=== PATIENT | female | born 1965 | race Caucasian/White ===

== ENCOUNTER 2020-06-15 14:18 | Emergency (ER) | payer SELFPAY ==
[2020-06-15] VITALS (13 sets, daily range): BP systolic 117–230; BP diastolic 56–109; PULSE 58–75; RESP 14–21; TEMP 36.3–36.6; O2SAT 95–98; BMI 46.6
--- NOTE | 2020-06-15 14:31 | DI.RAD.S_ITS ---
PROCEDURE: XR CHEST 1V INDICATIONS: chest pain TECHNIQUE: One view of the chest was acquired. COMPARISON: None. FINDINGS: Surgical changes and devices: None. Lungs and pleura: Lungs are clear. No pleural effusions or pneumothorax. Mediastinum: Mediastinal contours appear normal. Heart size is normal. Bones and chest wall: No suspicious bony lesions. Overlying soft tissues appear unremarkable. IMPRESSION: No acute cardiopulmonary pathology. Dictated by: Wilder Herzog M.D. on 06/15/2020 at 15:07 Approved by: Wilder Herzog M.D. on 06/15/2020 at 15:08
[2020-06-15 15:05] LABS: Add Manual Diff / Slide Review NO; Basophils Absolute Auto 0 /uL (0-100); Basophils Percent Auto 0.6 % (0-2); Eosinophils Absolute Auto 0 /uL (0-450); Eosinophils Percent Auto 1.4 % (2-4); Hematocrit 40.9 % (36-46); Hemoglobin 13.7 g/dL (12.0-16.0); Lymphocytes Absolute Auto 1200 /uL (1100-4500); Lymphocytes Percent Auto 35.5 % (25-40); Mean Corpuscular HGB Conc 33.5 % (30-36); Mean Corpuscular Hemoglobin 30.1 PG (26-34); Monocytes Absolute Auto 200 /uL (0-900); Monocytes Percent Auto 5.3 % (3-14); Neutrophils Absolute Auto 2000 /uL (1500-7000); Neutrophils Percent Auto 57.2 % (50-75); Platelet Count 198 X10^3/uL (150-400); Red Blood Cell Count 4.55 X10^6/uL (4.0-5.2); Red Cell Distribution Width 12.9 % (11.6-14.8); White Blood Cell Count 3.5 X10^3/uL (4.5-11.0)
[2020-06-15 15:14] LABS: Prothrombin Time 11.4 SECONDS (10.1-12.7)
[2020-06-15 15:16] LABS: PTT Partial Thromboplastin Tim 33 SECONDS (26.4-36.2)
[2020-06-15 15:20] LABS: Alanine Aminotransferase 21 IU/L (<35); Albumin Globulin Ratio 1.3 (1.0-2.8); Alkaline Phosphatase 106 U/L (38-126); Aspartate Aminotransferase 23 IU/L (14-36); BUN Creatinine Ratio 38.6 (6-22); Bilirubin Total 0.5 mg/dL (0.2-1.3); Blood Urea Nitrogen 17 mg/dL (7-17); Calcium 9.1 mg/dL (8.4-10.2); Carbon Dioxide 32 mmol/L (22-32); Chloride 101 mmol/L (98-107); Creatine Kinase 83 U/L (30-135); Estimated Glomerular Filt Rate > 60.0 mL/min (>60); Globulin 3.2 g/dL (1.7-4.1); Glucose 302 mg/dL (70-100); HEMOLYSIS < 15 (0-50); Lipase 236 U/L (23-300); Potassium 4.2 mmol/L (3.4-5.1); Sodium 135 mmol/L (137-145); Total Protein 7.2 g/dL (6.3-8.2)
[2020-06-15 15:31] LABS: Troponin I < 0.012 ng/mL (0.01-0.034)
--- NOTE | 2020-06-15 16:28 | ED.EXTPRO ---
HPI - Extremity Problem <ENRIQUE Ross - Last Filed: 06/22/20 20:31> General Chief complaint: Extremity Problem,Nontraumatic Stated complaint: left shoulder severe inter. pain x3days Time Seen by Provider: 06/15/20 15:37 Source: patient Mode of arrival: Ambulatory Limitations: no limitations History of Present Illness HPI Narrative: This is a 55 year female, nonsmoker, who presents to ED with chief complain of nontraumatic left posterior shoulder pain for 3 days after he was moving out heavy objects in storage. Patient reports today she felt radiating pain down to elbow. She denies tingling, numbness, weakness to affected arm. Patient denies chest pain, dyspnea, abdominal pain, mid back pain, nausea, vomiting, or diaphoresis. Patient reports he had helps with pain and movements of left arm and back aggravates pain. Patient denies rashes on the back, fever or chills. Patient describes as sharp and in severe intensity. Patient is not on blood thinner. Patient reports her blood pressure has been normal reading up until today. She works across [employer], [place] and was working before coming into ED. patient has been taking [id number] Tylenol and ibuprofen every 4-5 hours for last 3 days without much improvement. Related Data Home Medications Medication Instructions Recorded Confirmed levothyroxine [Synthroid] #0 11/09/16 Previous Rx's Medication Instructions Recorded sulfamethoxazole-trimethoprim 1 tab PO BID #20 tab 11/10/16 cyclobenzaprine 10 mg PO BEDTIME PRN #7 tab 06/15/20 hydrocodone-acetaminophen [[place]] 1 tab PO BID PRN #7 tab 06/15/20 lidocaine 1 patch TOPICAL DAILY #30 ea 06/15/20 Allergies Allergy/AdvReac Type Severity Reaction Status Date / Time No Known Drug Allergies Allergy Verified 06/15/20 14:27 Review of Systems <ENRIQUE Ross - Last Filed: 06/22/20 20:31> Review of Systems Narrative: General: Denies fever, chills, fatigue, malaise, sweats. HEENT: Denies sinus pain, ear pain, sore throat, difficulty swallowing, dizziness. Respiratory: Denies dyspnea, cough, wheezing, hemoptysis, sputum. Cardiovascular: Denies chest pain, palpitations, orthopnea, edema. Gastrointestinal: Denies nausea, vomiting, abdominal pain, diarrhea, constipation, melena. : Denies dysuria, frequency, incontinence, hematuria, urinary retention. Musculoskeletal: See HPI Skin: Denies rash, skin lesions, or other. Neurologic: Denies weakness, headache, numbness, change in speech, confusion, seizures, incoordination. Psychiatric: No concerning psychosocial issues. 12-point review of systems is negative except for those stated above. Patient History <ENRIQUE Ross - Last Filed: 06/22/20 20:31> Social History Smoking Status: Never smoker Smoking Status: Never smoker alcohol intake frequency: holidays/special occasions only Substance Use Type: marijuana Exam <ENRIQUE Ross - Last Filed: 06/22/20 20:31> Narrative Exam Narrative: GEN: Alert, oriented x 3, obese, and in moderate distress from pain. Head: Normal cephalic, atraumatic. No scalp or temporal tenderness, palpable mass or rash. EYES: Pupils are equal, round, and reactive to light and accommodation. Extraocular muscles are intact bilaterally. There is no subconjunctival hemorrhage, exudate and sclera non-icteric. ENT: Hearing grossly intact. Nose without bleeding, purulent discharge or deviation. Mucous membrane moist, no mucosal lesion. Throat without erythema, tonsillar hypertrophy or exudate. Uvula in midline, airway patent. Neck: Trachea in midline. No JVD, non-tender without lymphadenopathy. No masses or thyroid megaly. Supple, non-tender and no meningeal signs. CARDIAC: Normal regular rate and rhythm without murmurs, gallops, or rubs. No chest wall tenderness. No peripheral edema, cyanosis or pallor. Capillary refill is less than 2 seconds. RESPIRATORY: Lungs are clear to auscultate bilaterally. No cough, wheezes, rales, or rhonchi. No stridor, respiratory distress, increase work of breathing, or accessary muscle used. ABD: Abdomen soft, nontender and non-distended. No guarding or rebound tenderness to palpate. Bowel sounds are normal in all 4 quadrants. There is no palpable masses or organomegaly. SKIN: Warm, dry, normal color for patient. No erythema, lesions or rash over visible areas. BACK: Left side upper thoracic pain with palpation in subscapula region without rash, warmth, or erythema. No spinous tenderness. No deformity or mass. NEUROLOGICAL: Alert and oriented to place, time and person. Sensation and motor function intact bilaterally. No facial droops, dysphasia. PSYCHIATRIC: Good judgement and reason, without hallucinations, abnormal affect or abnormal behaviors during the examination. Patient is not suicidal. Initial Vital Signs Initial Vital Signs: Vital Signs Temperature 97.3 F L 06/15/20 14:27 Pulse Rate 75 06/15/20 14:27 Respiratory Rate 18 06/15/20 14:27 Blood Pressure 230/109 H 06/15/20 14:27 Pulse Oximetry 98 06/15/20 14:27 <Nader Cox MD - Last Filed: 07/31/20 20:17> Initial Vital Signs Initial Vital Signs: Vital Signs Temperature 97.3 F L 06/15/20 14:27 Pulse Rate 75 06/15/20 14:27 Respiratory Rate 18 06/15/20 14:27 Blood Pressure 230/109 H 06/15/20 14:27 Pulse Oximetry 98 06/15/20 14:27 Scores <ENRIQUE Ross - Last Filed: 06/22/20 20:31> GCS [place] coma scale eye opening: Spontaneous [place] coma scale verbal response: Orientated [place] coma scale motor response: Obey commands [place] coma scale total score: 15 HEART Score Heart Score history: Slightly Suspicious Heart Score EKG: Non-Specific repolarization disturbance Heart Score Age: > or = 65 years old Heart Score risk factors: No known risk factors Heart Score troponin: < or = to normal limit Heart Score Total: 3 Course <ENRIQUE Ross - Last Filed: 06/22/20 20:31> Orders Ordered: Discontinued Medications Hydromorphone HCl (Hydromorphone 1 Mg Inj) 1 mg IM NOW ONE Stop: 06/15/20 16:29 Last Admin: 06/15/20 16:36 Dose: 1 mg Documented by: MALACHI Ketorolac Tromethamine (Ketorolac 60 Mg/2 Ml Vial) 30 mg IM NOW ONE Stop: 06/15/20 16:29 Last Admin: 06/15/20 16:36 Dose: 30 mg Documented by: MALACHI Lidocaine (Lidocaine Patch 1 Each Adh..Patch) 1 each TOP NOW ONE Stop: 06/15/20 16:29 Last Admin: 06/15/20 16:37 Dose: 1 each Documented by: MALACHI Ondansetron HCl (Ondansetron 4 Mg Odt) 4 mg SL NOW ONE Stop: 06/15/20 17:38 Last Admin: 06/15/20 17:41 Dose: 4 mg Documented by: MALACHI Reevaluation(s) Reevaluation #1: Patient reports pain improved. Discussed lab findings with negative cardiac enzymes, chest x-rays, shoulder x-rays. Patient felt nauseated likely due to Dilaudid IM injection and ordered Zofran 4 mg ODT. Time: 17:40 Reevaluation #2: Patient reports much improved nausea and pain at this time and is ready to go home. Time: 19:09 Vital Signs Vital signs: Vital Signs - 8 hr 06/15/20 14:27 06/15/20 14:52 06/15/20 14:54 Temperature 97.3 F L Pulse Rate 75 Respiratory Rate 18 Blood Pressure 230/109 H 178/75 H 194/84 H Pulse Oximetry 98 06/15/20 14:56 06/15/20 15:00 06/15/20 15:30 Temperature Pulse Rate 63 64 64 Respiratory Rate 21 18 Blood Pressure Pulse Oximetry 98 98 95 06/15/20 16:00 06/15/20 16:30 06/15/20 17:17 Temperature Pulse Rate 63 64 60 Respiratory Rate 14 14 Blood Pressure Pulse Oximetry 96 95 97 06/15/20 17:19 06/15/20 18:33 06/15/20 18:34 Temperature Pulse Rate 58 L 62 Respiratory Rate 16 Blood Pressure 134/60 183/78 H Pulse Oximetry 95 97 98 06/15/20 19:08 Temperature 97.8 F Pulse Rate 58 L Respiratory Rate 15 Blood Pressure 117/56 L Pulse Oximetry 98 <Nader Cox MD - Last Filed: 07/31/20 20:17> Orders Ordered: Discontinued Medications Hydromorphone HCl (Hydromorphone 1 Mg Inj) 1 mg IM NOW ONE Stop: 06/15/20 16:29 Last Admin: 06/15/20 16:36 Dose: 1 mg Documented by: MALACHI Ketorolac Tromethamine (Ketorolac 60 Mg/2 Ml Vial) 30 mg IM NOW ONE Stop: 06/15/20 16:29 Last Admin: 06/15/20 16:36 Dose: 30 mg Documented by: MALACHI Lidocaine (Lidocaine Patch 1 Each Adh..Patch) 1 each TOP NOW ONE Stop: 06/15/20 16:29 Last Admin: 06/15/20 16:37 Dose: 1 each Documented by: MALACHI Ondansetron HCl (Ondansetron 4 Mg Odt) 4 mg SL NOW ONE Stop: 06/15/20 17:38 Last Admin: 06/15/20 17:41 Dose: 4 mg Documented by: MALACHI Vital Signs Vital signs: Vital Signs - 8 hr 06/15/20 14:27 06/15/20 14:52 06/15/20 14:54 Temperature 97.3 F L Pulse Rate 75 Respiratory Rate 18 Blood Pressure 230/109 H 178/75 H 194/84 H Pulse Oximetry 98 06/15/20 14:56 06/15/20 15:00 06/15/20 15:30 Temperature Pulse Rate 63 64 64 Respiratory Rate 21 18 Blood Pressure Pulse Oximetry 98 98 95 06/15/20 16:00 06/15/20 16:30 06/15/20 17:17 Temperature Pulse Rate 63 64 60 Respiratory Rate 14 14 Blood Pressure Pulse Oximetry 96 95 97 06/15/20 17:19 06/15/20 18:33 06/15/20 18:34 Temperature Pulse Rate 58 L 62 Respiratory Rate 16 Blood Pressure 134/60 183/78 H Pulse Oximetry 95 97 98 06/15/20 19:08 Temperature 97.8 F Pulse Rate 58 L Respiratory Rate 15 Blood Pressure 117/56 L Pulse Oximetry 98 MDM - Extremity (Nontraumatic) <Enrico ENRIQUE Lawler - Last Filed: 06/22/20 20:31> Differential Diagnosis Differential diagnosis: Likely other (Thoracic strain, shingles, strained trapezius, ACS) Medical Records Attestation: I reviewed the patient's medical records. Lab Data Attestation: I reviewed the patient's lab results. Result diagrams: 06/15/20 14:55 06/15/20 14:55 Labs: Lab Results 06/15/20 06/15/20 06/15/20 Range/Units 14:55 14:55 14:55 WBC 3.5 L (4.5-11.0) X10^3/uL RBC 4.55 (4.0-5.2) X10^6/uL Hgb 13.7 (12.0-16.0) g/dL Hct 40.9 (36-46) % MCV 90.0 (80-100) fL MCH 30.1 (26-34) PG MCHC 33.5 (30-36) % RDW 12.9 (11.6-14.8) % Plt Count 198 (150-400) X10^3/uL Neut % (Auto) 57.2 (50-75) % Lymph % (Auto) 35.5 (25-40) % [place] % (Auto) 5.3 (3-14) % Eos % (Auto) 1.4 L (2-4) % Baso % (Auto) 0.6 (0-2) % Neut # (Auto) 2000 (7731-7570) /uL Lymph # (Auto) 1200 (9027-6592) /uL [place] # (Auto) 200 (0-900) /uL Eos # (Auto) 0 (0-450) /uL Baso # (Auto) 0 (0-100) /uL PT 11.4 (10.1-12.7) SECONDS INR 1.0 (0.9-1.3) APTT 33 (26.4-36.2) SECONDS Sodium 135 L (137-145) mmol/L Potassium 4.2 (3.4-5.1) mmol/L Chloride 101 (98-107) mmol/L Carbon Dioxide 32 (22-32) mmol/L BUN 17 (7-17) mg/dL Creatinine 0.44 L (0.52-1.04) mg/dL Estimated GFR > 60.0 (>60) mL/min BUN/Creatinine Ratio 38.6 H (6-22) Glucose 302 H (70-100) mg/dL Calcium 9.1 (8.4-10.2) mg/dL Total Bilirubin 0.5 (0.2-1.3) mg/dL AST 23 (14-36) IU/L ALT 21 (<35) IU/L Alkaline Phosphatase 106 (38-126) U/L Total Creatine Kinase 83 (30-135) U/L CK-MB (CK-2) TNP CK-MB (CK-2) Rel Index TNP Troponin I < 0.012 (0.01-0.034) ng/mL Total Protein 7.2 (6.3-8.2) g/dL Albumin 4.0 (3.5-5.0) g/dL Globulin 3.2 (1.7-4.1) g/dL Albumin/Globulin Ratio 1.3 (1.0-2.8) Lipase 236 (23-300) U/L 06/15/20 Range/Units 17:10 WBC (4.5-11.0) X10^3/uL RBC (4.0-5.2) X10^6/uL Hgb (12.0-16.0) g/dL Hct (36-46) % MCV (80-100) fL MCH (26-34) PG MCHC (30-36) % RDW (11.6-14.8) % Plt Count (150-400) X10^3/uL Neut % (Auto) (50-75) % Lymph % (Auto) (25-40) % [place] % (Auto) (3-14) % Eos % (Auto) (2-4) % Baso % (Auto) (0-2) % Neut # (Auto) (3637-0433) /uL Lymph # (Auto) (1959-9651) /uL [place] # (Auto) (0-900) /uL Eos # (Auto) (0-450) /uL Baso # (Auto) (0-100) /uL PT (10.1-12.7) SECONDS INR (0.9-1.3) APTT (26.4-36.2) SECONDS Sodium (137-145) mmol/L Potassium (3.4-5.1) mmol/L Chloride (98-107) mmol/L Carbon Dioxide (22-32) mmol/L BUN (7-17) mg/dL Creatinine (0.52-1.04) mg/dL Estimated GFR (>60) mL/min BUN/Creatinine Ratio (6-22) Glucose (70-100) mg/dL Calcium (8.4-10.2) mg/dL Total Bilirubin (0.2-1.3) mg/dL AST (14-36) IU/L ALT (<35) IU/L Alkaline Phosphatase (38-126) U/L Total Creatine Kinase 74 (30-135) U/L CK-MB (CK-2) TNP CK-MB (CK-2) Rel Index TNP Troponin I < 0.012 (0.01-0.034) ng/mL Total Protein (6.3-8.2) g/dL Albumin (3.5-5.0) g/dL Globulin (1.7-4.1) g/dL Albumin/Globulin Ratio (1.0-2.8) Lipase (23-300) U/L Imaging Data Chest x-ray: Radiologist's Impression: [address] [id number] ReportSigned Patient: Meghna Rudd [facility]#: [id number]: 1965Acct:[id number]/Sex: 55 / FDate of Service: 06/15/20Loc: EDAccession Number: [id number] Procedure: XR chest 1V Ordering Provider: Nader Cox MD PROCEDURE: XR CHEST 1V INDICATIONS: chest pain TECHNIQUE: One view of the chest was acquired. COMPARISON: None. FINDINGS: Surgical changes and devices: None. Lungs and pleura: Lungs are clear. No pleural effusions or pneumothorax. Mediastinum: Mediastinal contours appear normal. Heart size is normal. Bones and chest wall: No suspicious bony lesions. Overlying soft tissues appear unremarkable. IMPRESSION: No acute cardiopulmonary pathology. Dictated by: Wilder Herzog M.D. on 06/15/2020 at 15:07 Approved by: Wilder Herzog M.D. on 06/15/2020 at 15:08 XR-Shoulder LT: Radiologist's Impression: [address] [id number] ReportSigned Patient: Meghna Rudd MMR#: [id number]: 1965Acct:[id number]/Sex: 55 / FDate of Service: 06/15/20Loc: EDAccession Number: [id number] Procedure: XR shoulder LT min 2V Ordering Provider: Enrico Lawler PROCEDURE: XR SHOULDER LT MIN 2V INDICATIONS: left posterior shoulder pain TECHNIQUE: 3 views of the shoulder were acquired. COMPARISON: None. FINDINGS: Bones: No acute fractures or dislocations. No suspicious bony lesions. Visualized ribs appear intact. Moderate degenerative changes are noted at the acromioclavicular joint. Soft tissues: No suspicious soft tissue calcifications. IMPRESSION: No acute osseous abnormality. Moderate acromioclavicular joint osteoarthrosis. If the symptoms persist with conservative management, consider cross sectional imaging such as CT or MRI for further assessment. Dictated by: Trevon Ribera M.D. on 06/15/2020 at 16:11 Approved by: Trevon Ribera M.D. on 06/15/2020 at 16:12 ECG Data Attestation EKG: I personally reviewed and interpreted this ECG as follows: Prior ECG tracings: not available for review Interpretation: Normal sinus rhythm rate at 65. Normal [place]. Low voltage of QRS. IN interval 194, QRS duration 84, QT/QTC 370/384. Q-waves in septal leads No acute ST changes. MDM Narrative Medical decision making narrative: This is a 55 year female who presents to ED with chief complain of nontraumatic left upper thoracic and subscapular region discomfort for last 3 days after she was moving heavy objects out of storage. Patient has intact sensation in right extremities with bilaterally equal strength. Pain increases with movement of right arm and fingers, back and palpation on affected site. Physical exam is not consistent with signs of infection. Concerned for ACS, cardiac enzymes, EKG, chest x-ray were obtained. EKG shows normal sinus rhythm without acute ST changes but Q-waves in septal leads. Negative cardiac enzymes. Second cardiac enzymes was also negative. HEART score is 3. Chest x-ray without acute findings. Left shoulder x-ray shows no acute fractures or dislocations but moderate AC joint osteoarthritis. Patient was medicated with IM injections of Dilaudid, Toraol, lidocaine patch which improved pain. Patient became nauseated when she was re-evaluated and Zofran was administered. Patient reports much improved symptoms and left upper back pain when she was re-evaluated. When patient came in, exhibited significantly high blood pressure which improved the course of ED stay and when pain was well managed. The patient has moderately elevated serum blood glucose of 302 today and has history of elevated blood glucose 3.5 years ago as well. Patient provided [facility] Resource phone number to select primary care physician. Return precautions were discussed with patient and discharged to home with Flexeril, lidocaine patch, and a few tabs of [place] and advised to take [id number] Tylenol and or Motrin as baseline and narcotic/muscle relaxant medication precautions discussed with patient. Patient verbalized understanding and agreement with the treatment plan. <Nader Cox MD - Last Filed: 07/31/20 20:17> Lab Data Labs: Lab Results 06/15/20 06/15/20 06/15/20 Range/Units 14:55 14:55 14:55 WBC 3.5 L (4.5-11.0) X10^3/uL RBC 4.55 (4.0-5.2) X10^6/uL Hgb 13.7 (12.0-16.0) g/dL Hct 40.9 (36-46) % MCV 90.0 (80-100) fL MCH 30.1 (26-34) PG MCHC 33.5 (30-36) % RDW 12.9 (11.6-14.8) % Plt Count 198 (150-400) X10^3/uL Neut % (Auto) 57.2 (50-75) % Lymph % (Auto) 35.5 (25-40) % [place] % (Auto) 5.3 (3-14) % Eos % (Auto) 1.4 L (2-4) % Baso % (Auto) 0.6 (0-2) % Neut # (Auto) 2000 (7752-0434) /uL Lymph # (Auto) 1200 (8028-8942) /uL [place] # (Auto) 200 (0-900) /uL Eos # (Auto) 0 (0-450) /uL Baso # (Auto) 0 (0-100) /uL PT 11.4 (10.1-12.7) SECONDS INR 1.0 (0.9-1.3) APTT 33 (26.4-36.2) SECONDS Sodium 135 L (137-145) mmol/L Potassium 4.2 (3.4-5.1) mmol/L Chloride 101 (98-107) mmol/L Carbon Dioxide 32 (22-32) mmol/L BUN 17 (7-17) mg/dL Creatinine 0.44 L (0.52-1.04) mg/dL Estimated GFR > 60.0 (>60) mL/min BUN/Creatinine Ratio 38.6 H (6-22) Glucose 302 H (70-100) mg/dL Calcium 9.1 (8.4-10.2) mg/dL Total Bilirubin 0.5 (0.2-1.3) mg/dL AST 23 (14-36) IU/L ALT 21 (<35) IU/L Alkaline Phosphatase 106 (38-126) U/L Total Creatine Kinase 83 (30-135) U/L CK-MB (CK-2) TNP CK-MB (CK-2) Rel Index TNP Troponin I < 0.012 (0.01-0.034) ng/mL Total Protein 7.2 (6.3-8.2) g/dL Albumin 4.0 (3.5-5.0) g/dL Globulin 3.2 (1.7-4.1) g/dL Albumin/Globulin Ratio 1.3 (1.0-2.8) Lipase 236 (23-300) U/L 06/15/20 Range/Units 17:10 WBC (4.5-11.0) X10^3/uL RBC (4.0-5.2) X10^6/uL Hgb (12.0-16.0) g/dL Hct (36-46) % MCV (80-100) fL MCH (26-34) PG MCHC (30-36) % RDW (11.6-14.8) % Plt Count (150-400) X10^3/uL Neut % (Auto) (50-75) % Lymph % (Auto) (25-40) % [place] % (Auto) (3-14) % Eos % (Auto) (2-4) % Baso % (Auto) (0-2) % Neut # (Auto) (7252-1579) /uL Lymph # (Auto) (0950-0069) /uL [place] # (Auto) (0-900) /uL Eos # (Auto) (0-450) /uL Baso # (Auto) (0-100) /uL PT (10.1-12.7) SECONDS INR (0.9-1.3) APTT (26.4-36.2) SECONDS Sodium (137-145) mmol/L Potassium (3.4-5.1) mmol/L Chloride (98-107) mmol/L Carbon Dioxide (22-32) mmol/L BUN (7-17) mg/dL Creatinine (0.52-1.04) mg/dL Estimated GFR (>60) mL/min BUN/Creatinine Ratio (6-22) Glucose (70-100) mg/dL Calcium (8.4-10.2) mg/dL Total Bilirubin (0.2-1.3) mg/dL AST (14-36) IU/L ALT (<35) IU/L Alkaline Phosphatase (38-126) U/L Total Creatine Kinase 74 (30-135) U/L CK-MB (CK-2) TNP CK-MB (CK-2) Rel Index TNP Troponin I < 0.012 (0.01-0.034) ng/mL Total Protein (6.3-8.2) g/dL Albumin (3.5-5.0) g/dL Globulin (1.7-4.1) g/dL Albumin/Globulin Ratio (1.0-2.8) Lipase (23-300) U/L Discharge Plan Departure Patient Disposition: Home Clinical Impression: Left shoulder strain, Hypertension Instructions: DI for High Blood Pressure, DI for Shoulder Pain Activity Restrictions/Additional Instructions: You have been diagnosed with [nontraumatic left shoulder/trapezius likely from overuse. Labs, chest x-ray, shoulder x-ray, EKG tests are assuring. ]. What to do: *Take your medications as directed. Please use [id number] Tylenol and or Motrin as needed for discomfort as baseline. Please take Motrin with food to decrease GI irritations. You can take 650-1000 mg Tylenol up to 4 times a day. Ibuprofen 400-600 mg up to 3 times a day as needed. You can use muscle relaxant Flexeril up to twice a day as needed. For severe pain, you can use [place] which is narcotic pain medication 1 tab but replace this with regular Tylenol. As an adult you can take up to 3273-5276 mg Tylenol in 24 hour period. Please try not to mix with Flexeril with [place] since both medication can cause drowsiness. Please do not drive, drink alcohol, or operate heavy equipments while your taking these medications. Use lidocaine patch on affected site which stays on for 12 hours and off for 12 hours for pain as needed. Your blood pressure have improved after pain was managed. These medication have been transmitted to [facility] in [place]. *Follow up with your primary care provider in 2-3 days, call for an appointment. Let them know you were seen in the ED and that we asked you to be seen in follow up. *Return to ED if you have any new, worsening, or concerning symptoms, such as [worsening pain, chest pain, difficulty breathing, nausea/vomiting, tingling/numbness/weakness to affected extremities, fever, rash or any acute concerns]. Prescriptions: New lidocaine 5 % adhesive patch,medicated 1 patch topical DAILY Qty: 30 RF: 0 cyclobenzaprine 10 mg tablet 10 mg PO BEDTIME PRN (Reason: muscle spasm) Qty: 7 RF: 0 hydrocodone-acetaminophen [[place]] 5-325 mg tablet 1 tab PO BID PRN (Reason: pain) Qty: 7 RF: 0 No Action levothyroxine [Synthroid] 25 MCG tablet Qty: 0 RF: 0 sulfamethoxazole-trimethoprim 800 MG/160 MG tablet 1 tab PO BID Qty: 20 RF: 0 Referrals: [facility] Resources [Outside] Stand Alone Forms: Work Release Note
[2020-06-15] MEDS: KETOROLAC 60 MG/2 ML VIAL 30 MG IM (16:36)
[2020-06-15] MEDS: HYDROMORPHONE 1 MG INJ IM (16:36)
[2020-06-15] MEDS: LIDOCAINE PATCH 1 EACH ADH..PATCH TOP (16:37)
--- NOTE | 2020-06-15 16:59 | DI.RAD.S_ITS ---
PROCEDURE: XR SHOULDER LT MIN 2V INDICATIONS: left posterior shoulder pain TECHNIQUE: 3 views of the shoulder were acquired. COMPARISON: None. FINDINGS: Bones: No acute fractures or dislocations. No suspicious bony lesions. Visualized ribs appear intact. Moderate degenerative changes are noted at the acromioclavicular joint. Soft tissues: No suspicious soft tissue calcifications. IMPRESSION: No acute osseous abnormality. Moderate acromioclavicular joint osteoarthrosis. If the symptoms persist with conservative management, consider cross sectional imaging such as CT or MRI for further assessment. Dictated by: Trevon Ribera M.D. on 06/15/2020 at 16:11 Approved by: Trevon Ribera M.D. on 06/15/2020 at 16:12
[2020-06-15 17:32] LABS: Creatine Kinase 74 U/L (30-135)
[2020-06-15] MEDS: ONDANSETRON 4 MG ODT SL (17:41)
[2020-06-15 17:45] LABS: Troponin I < 0.012 ng/mL (0.01-0.034)
--- NOTE | 2020-06-15 19:17 | PC.NURSE ---
Pt ambulated to restroom independently without difficulty.
== END 2020-06-15 19:31 | disposition home or self-care (01) ==
PROVIDERS: Emergency Medicine; Emergency Provider Nurse Practitioner Family
DX: S46.912A Strain of unspecified muscle, fascia and tendon at shoulder and upper arm level, left arm, initial encounter (principal); X50.9XXA Other and unspecified overexertion or strenuous movements or postures, initial encounter; I10 Essential (primary) hypertension; R73.09 Other abnormal glucose; R07.9 Chest pain, unspecified; E66.9 Obesity, unspecified; Z68.42 Body mass index [BMI] 45.0-49.9, adult; M54.6 Pain in thoracic spine; R11.0 Nausea
CPT/HCPCS: 36415; 71045; 73030; 80053; 82550; 83690; 84484; 85025; 85610; 85730; 93005; 96372; 99283; 99284; J1170; J1885

== ENCOUNTER → 2024-05-20 12:30 | Outpatient (CLI) | payer OTHER, MEDICAID, SELFPAY ==
[2024-05-20 13:36] LABS: Alanine Aminotransferase 12 IU/L (<35); Albumin 4.1 g/dL (3.5-5.0); Albumin Globulin Ratio 1.3 (1.0-2.8); Alkaline Phosphatase 82 U/L (38-126); Aspartate Aminotransferase 18 IU/L (14-36); BUN Creatinine Ratio 21.5 (6-22); Bilirubin Total 0.7 mg/dL (0.2-1.3); Blood Urea Nitrogen 14 mg/dL (7-17); Calcium 9.8 mg/dL (8.4-10.2); Carbon Dioxide 30 mmol/L (22-32); Chloride 100 mmol/L (98-107); Estimated Glomerular Filt Rate > 60 mL/min (>60); Globulin 3.2 g/dL (1.7-4.1); Glucose 187 mg/dL (80-110); HEMOLYSIS < 15 (0-50); Potassium 4.2 mmol/L (3.4-5.1); Sodium 137 mmol/L (137-145); Total Protein 7.3 g/dL (6.3-8.2)
[2024-05-20 13:44] LABS: Hemoglobin A1C% w Est Avg Glu 6.9 % (4.0-6.0)
[2024-05-20 14:05] LABS: TSH w/ Reflex to FT4 4.43 uIU/mL (0.47-4.68)
== END ==
PROVIDERS: PCP Family Medicine; Referring Provider Family Medicine; Visit Provider Family Medicine
DX: E11.9 Type 2 diabetes mellitus without complications (principal); E03.9 Hypothyroidism, unspecified; N70.93 Salpingitis and oophoritis, unspecified; I10 Essential (primary) hypertension
CPT/HCPCS: 36415; 80053; 83036; 84443

== ENCOUNTER → 2024-06-28 15:05 | Outpatient (CLI) | payer OTHER, MEDICAID, SELFPAY ==
--- NOTE | 2024-06-28 15:06 | DI.US.S_ITS ---
PROCEDURE: US PELVIC COMPLETE INDICATIONS: Pelvic pain/ovarian cyst TECHNIQUE: Real-time scanning was performed of the pelvic organs, with image documentation. Additional endovaginal scanning was necessary due to incomplete visualization of the adnexal and endometrial structures by transabdominal scanning. COMPARISON: [facility], US, US PELVIC TRANSVAGINAL, 05/05/2024, 0:33. FINDINGS: Uterus: Uterus is anteverted and normal in size at 8.2 x 4.2 x 7.1 cm. The myometrium is homogeneous. The endometrium measures 2 mm combined thickness. Ovaries: The right ovary measures 2.3 x 2.8 x 3.4 cm, with a calculated ovarian volume of 11.3 cc. The left ovary measures 2.6 x 1.9 x 3.0 cm, with a calculated ovarian volume of 7.8 cc. The ovaries have a normal sonographic appearance. Less than 12 follicles can be seen in each ovary. No adnexal masses are seen. Other: No pathologic free abdominal or pelvic fluid. IMPRESSION: No cause for patient's pain is identified. Normal appearance of the uterus and ovaries. We strive to produce accurate, complete, and clear reports of imaging services. To assist us in improving patient care, this report was composed using standard report templates and voice recognition software. Therefore, it may contain abnormal punctuation, insertions and/or omissions. Occasional wrong-word or sound-alike substitutions may occur. Though we review the report and make efforts to correct it, we do recommend that the report be read carefully in proper context to recognize any text inaccuracies. Dictated by: Mo Conte M.D. on 06/29/2024 at 9:33 Approved by: Mo Conte M.D. on 06/29/2024 at 9:36
== END ==
LOC: US 15:06
PROVIDERS: PCP Family Medicine; Referring Provider Obstetrics & Gynecology; Visit Provider Obstetrics & Gynecology
DX: N70.93 Salpingitis and oophoritis, unspecified (principal); N83.209 Unspecified ovarian cyst, unspecified side
CPT/HCPCS: 76856

== ENCOUNTER → 2024-07-22 10:58 | Outpatient (CLI) | payer OTHER, SELFPAY ==
--- NOTE | 2024-07-22 11:00 | DI.CT.S_ITS ---
PROCEDURE: CT ABDOMEN PELVIS W CON INDICATIONS: Possible rectal/sigmoid fistula at [facility] 05/05/24 CT TECHNIQUE: After the administration of intravenous contrast, axial sections acquired from the lung bases to the pubic symphysis. Coronal and sagittal reformats were performed. For radiation dose reduction, the following was used: automated exposure control, adjustment of mA and/or kV according to patient size. COMPARISON: [facility], CT, CT ABDOMEN PELVIS WITH CONTRAST, 05/05/2024, 14:17. FINDINGS: Lower thorax: The lung bases are clear. Heart size normal. No hiatal hernia. Liver: Normal in size and attenuation. No contour deformity present. Biliary system: Calcified stones noted in the lumen of the gallbladder. No pericholecystic inflammatory change. No intra or extrahepatic bile duct dilation. Pancreas: Unremarkable without mass or inflammation evident. Spleen: Normal in size and density. Adrenals: Normal morphology and density. Reproductive system: Unremarkable as visualized. Urinary system: Right renal increasing hydronephrosis and hydroureter to the level of the inflammatory changes described below. No left hydronephrosis. Gastrointestinal system: Persistent in sigmoid wall thickening with inflammatory changes and abscess situated just superior to the uterine fundus is very similar to the prior exam and consistent with fistulous communication. No bowel obstruction Appendix: No findings to suggest acute appendicitis. Vasculature: The IVC, aorta and iliac vasculature are unremarkable. Abdominal wall: Abdominal wall intact without evidence of ventral or inguinal hernias. Musculoskeletal: Normal bone mineralization. Degenerative disc disease and arthropathy noted in lower lumbar spine. No acute fractures. IMPRESSION: Stable fistulous abscess superior to the uterine fundus associated with worsening moderate right hydronephrosis Approved by: Claude Bocanegra M.D. on 07/22/2024 at 17:08
[2024-07-22 11:21] LABS: Estimated Glomerular Filt Rate > 60 mL/min (>60)
== END ==
PROVIDERS: Radiology Diagnostic Radiology; PCP Family Medicine; Referring Provider Obstetrics & Gynecology; Visit Provider Obstetrics & Gynecology
DX: N13.30 Unspecified hydronephrosis (principal); K63.2 Fistula of intestine; R10.31 Right lower quadrant pain; K80.20 Calculus of gallbladder without cholecystitis without obstruction; M51.369 Other intervertebral disc degeneration, lumbar region without mention of lumbar back pain or lower extremity pain; M47.816 Spondylosis without myelopathy or radiculopathy, lumbar region
CPT/HCPCS: 36415; 74177; 82565; Q9967

== ENCOUNTER → 2024-08-17 14:59 | Outpatient (CLI) | payer OTHER, SELFPAY | PROVIDERS: PCP Family Medicine; Visit Provider Urology | DX: N39.0 Urinary tract infection, site not specified (principal) | CPT/HCPCS: 81002; 87086; 99214 ==

== ENCOUNTER 2024-08-25 06:37 | Inpatient (IN) | payer OTHER, SELFPAY ==
[2024-08-12 11:58] VITALS: BMI 39.9
[2024-08-25] VITALS (18 sets, daily range): BP systolic 125–164; BP diastolic 51–79; PULSE 59–92; RESP 14–20; TEMP 35.6–36.8; O2SAT 94–100; BMI 39.6; BMI 39.2
--- NOTE | 2024-08-25 | PATH_ITS ---
[facility] Accession Number: [id number] No. of containers..01 Tissue . 01 Material submitted: . colon - SIGMOID COLON . 01 Diagnosis: SIGMOID COLON, SEGMENTAL RESECTION: Segment of colon with focal gross perforation, serosal adhesions, and focal serositis; please see comment. Negative for granulomas, dysplasia, or malignancy. Eleven benign pericolonic lymph nodes. V 09/01/2024 1331 Local . 01 Comment: No obvious diverticula are noted grossly, but a focal perforation is seen. Gross and histologic examination shows areas of serosal adhesions and focal exudate. Features suggestive of Crohn's disease are not identified. There is no evidence of neoplasm. . 01 Electronically signed: . Giovanni Bowles MD, PhD, Pathologist NPI- [id number] . 01 Gross description: . Received fresh and subsequently placed in formalin with two patient identifiers and sigmoid colon, is an unoriented portion of colon, 13.5 cm in length by 2.5 cm in average diameter. The serosa is regan to violaceous and ragged with a full-thickness defect and exposed mucosa, 1.2 cm in greatest dimension. One staple line is inked blue, the opposite staple line is inked black, and the area of defect is inked orange. The lumen contains a small amount of red mucohemorrhagic material. The mucosa is pink-regan and velvety with normal-appearing folds and no lesions identified. The trevino are diffusely thickened, up to 0.5 cm thick, with no obvious diverticula identified. Palpation reveals 12 pink-regan lymph node candidates ranging from 0.2-1.0 cm in greatest dimension. . [place] [employer] sections are submitted as follows: A1: Rep margins en face. A2: Area of defect. A3: Full-thickness sections. A4: Single bisected lymph node candidate. A5: Single bisected lymph node candidate. A6: Single bisected lymph node candidate. A7: Four intact lymph node candidates. A8: Two intact lymph node candidates. A9: Three intact lymph node candidates. (AG:[facility] [id number]) . An additional section of defect is submitted in A10 while an additional section of possible adhesion is submitted in A11. (AG:[facility] [id number]) . Note: The gross specimen was reviewed by Dr. Bowles on 08/31/2024. (MS:[id number]) /MRV 09/01/2024 1328 Local . 01 Pathologist provided ICD-10: K63.1, K56.51 . 01 CPT . 486605 Specimen Comment: A courtesy copy of this report has been sent to [facility] Pathology Performed at: [address] [id number] MD Chapincito Dang MD Phone: [phone]
[2024-08-25] MEDS: ACETAMINOPHEN 325 MG TABLET 975 MG PO (07:19)
[2024-08-25] MEDS: LACTATED RINGERS 1,000 ML 42 ML IV (07:19)
[2024-08-25] MEDS: INSULIN LISPRO 100 UNIT/ML 3ML VIAL SUBCUT ×2 (07:32→13:45)
--- NOTE | 2024-08-25 07:35 | PM.PREOP ---
Pre-operative Note COVID-19 COVID-19 status: Not tested Interval Note History & Physical reviewed/Exam performed by Physician: Yes Changes to H&P: No
--- NOTE | 2024-08-25 07:51 | PM.PREOP ---
Pre-operative Note Interval Note History & Physical reviewed/Exam performed by Physician: Yes Changes to H&P: No
[2024-08-25] MEDS: CEFAZOLIN 2 GM/100 ML PREMIX 100 ML IV ×2 (08:00→12:10)
[2024-08-25] MEDS: metroNIDAZOLE 500 MG/100 ML PIGGYBACK 100 MG IV (08:05)
--- NOTE | 2024-08-25 08:34 | PM.OP.1 ---
Procedure & Clinicians Procedure: Cystoscopy Bilateral ureteral lighted stent placement Same procedure as scheduled: Yes Indications: 59 y/o F noted to have continued diverticulitis w/ a possible abscess that is compressing her right ureter and leading to resultant upstream moderate hydroureteronephrosis and a delayed right nephrogram. Discussed that her General Surgeon is kindly requesting placement of bilateral ureteral stents preoperatively. Surgeon: Pierre Mcdonald Click Yes if Unassisted: Yes Anesthesia Type: General Operative Notes Findings: Unremarkable cystoscopy, placement of bilateral ureteral lighted stents Closure Type: not applicable Specimen(s): none sent Applied: catheter Estimated Blood Loss (mL): 0 Blood products transfused: none Procedure in detail: Patient was identified in the preoperative holding area and consent confirmed. She was then brought to the operating room where general anesthesia was induced.? She was then placed in the low lithotomy position. She was then prepped and draped in the usual sterile fashion. A surgical timeout was conducted and all were in agreement. Access to the bladder was obtained via a 21Fr cystoscope.? Complete cystoscopy was performed and no concerning masses or lesions were noted. Bilateral ureteral orifices were easily visualized and noted to be orthotopic in nature. The right ureteral orifice was then easily cannulated using a 0.035 sensor tip ureteral guidewire that was advanced easily into the right renal collecting system. The left ureteral orifice was then cannulated using a 0.035 sensor tip ureteral guidewire in similar fashion and this guidewire was advanced into the left renal collecting system. The cystoscope was then removed. The right ureteral stent was then advanced over the guidewire and into the right renal collecting system where resistance was met. The inner guidewire was then removed and the fiberoptic cable was advanced through the stent to its maximum insertion depth. The left ureteral stent was then placed in similar fashion, the inner guidewire was removed and the fiberoptic cable was also advanced through the stent to its maximum insertion depth. Of note, the right ureteral stent has less black markings external to the patient. A 16Fr cuevas catheter was then advanced through the urethra and into the bladder. 10cc of sterile water was utilized for balloon insufflation. The ureteral stents were then secured to the catheter using Tegaderm and steristrips. The fiberoptic cability of the stents was then assessed and noted to be excellent. At this time, care of the patient was turned over the General Surgery team. Please see their separate dictation for further details. Complications: none Post-operative Condition: stable Disposition: other (determined by General Surgery team) Plan for aftercare: Urology will only be involved further in her care should any right or left ureteral injury be encountered during the General Surgery portion of this case.
--- NOTE | 2024-08-25 11:33 | SUR.OPER ---
1125 DR. SUH RETURNED TO OR 2 TO CHECK PLACEMENT OF URETERAL STENTS BILATERAL
--- NOTE | 2024-08-25 11:44 | SUR.OPER ---
1143 DR. SUH OUT OF OR [address]. REMOVED AND REPLACED 16FR ENAMORADO
--- NOTE | 2024-08-25 11:45 | SUR.OPER ---
LATE ENTRY; ATTEMPTED TO UPDATE FAMILY @ [phone] (DAUGHTER KASH) PHONE NUMBER ON FAMILY SHEET WAS IN CORRECT. A MALE ANSWERED STATED THAT WAS NOT KASH'S NUMBER. NO OTHER NUMBER AVAILABLE
[2024-08-25 12:12] LABS: Hematocrit 33.7 % (36-46); Hemoglobin 11.6 g/dL (12.0-16.0); Mean Corpuscular HGB Conc 34.6 % (30-36); Mean Corpuscular Hemoglobin 31.5 PG (26-34); Mean Corpuscular Volume 91.1 fL (80-100); Platelet Count 307 X10^3/uL (150-400); Red Cell Distribution Width 13.7 % (11.6-14.8); White Blood Cell Count 9.8 X10^3/uL (4.5-11.0)
--- NOTE | 2024-08-25 13:00 | PM.OP.1 ---
Operative Date/Time/Diagnoses Date of procedure: 08/25/24 Time of procedure: 13:00 Pre-op diagnosis: Sigmoid Diverticulitis with abscess, hydroureter Post-op diagnosis: same Procedure & Clinicians Procedure: Laparoscopic low anterior resection of the sigmoid colon with colorectal anastomosis, mobilization splenic flexure Same procedure as scheduled: Yes Indications: Diverticulitis with hydroureter Surgeon: West Ortiz Director Of Operations Support: Volodymyr Becker Click Yes if Unassisted: No Anesthesia Type: General Operative Notes Findings: Extensive desmoplastic reaction involving both ureters Closure Type: primary Specimen(s): other (Sigmoid colon) Estimated Blood Loss (mL): 1,000 Blood products transfused: none Procedure in detail: Patient was brought to the operating room suite after undergoing bowel preparation in antibiotics. General anesthesia was induced with the patient in modified Troy Fritz Yellofin position. Urology started the case by placing bilateral lighted ureters. We then prepped and draped the patient for laparoscopic sigmoid colectomy. Total of 60 mL of 0.5% Marcaine was infiltrated in all trocar sites and bilateral transversus abdominis plane blocks. 5 mm optical trocar was placed in the left upper quadrant. Pneumoperitoneum was achieved. The abdomen was inspected. Additional 5 mm trocars were placed above the umbilicus, right upper quadrant, 12 mm trocar placed in the right lower quadrant. The lateral attachments of the sigmoid colon up to and including the splenic flexure were mobilized using a power seal across spinal colic and gastrocolic ligaments.. The sigmoid colon was densely adherent to the pelvis, both with a desmoplastic reaction on the right ureter, left ureter and left adnexa with a cyst on the left tube and ovary. Blunt dissection was used to remove the sigmoid from the right ureter which was readily visible with a flashing lighted stent. There was slow oozing of blood throughout the case due to the amount of inflammation. Power seal was used to open the mesentery, but the left ureteral stent was not visualized. Blunt dissection was used to take the sigmoid colon away from the left adnexa. The left ureteral flashing stent was coiled in the bladder, so we had Urology return and replaced the stent on the left side. There was initially some blood in the urine, then not much urine output after the stent exchange. A hand port was placed through a Pfannenstiel incision to aid with dissection. The left ureteral stent was palpable in the retroperitoneum. A contour was fired across the healthy rectum. The segment of sigmoid was then pulled up through the wound protector. Healthy descending colon was transected with Bovie electrocautery. A Prolene pursestring was made around a 29 mm anvil, then placed down in the pelvis. EEA sizers were placed in the rectum by the assistant spa manager followed by the stapler. The anvil's spike protruded posterior to the staple line. The 2 were brought together and closed under direct visualization. This was closed and fired. The Prolene side of the doughnut was fractured, however the rectum side was thick and round. Leak test was performed which did not demonstrate any bubbling. The abdomen was copiously irrigated. A wound protector was removed. The Pfannenstiel was closed in 2 layers with a 3-0 PDS on the posterior and 2-0 PDS anteriorly. Gia was closed 3-0 Vicryl. Skin was closed with 4-0 Monocryl and Dermabond. Patient tolerated the procedure well was transferred to PACU in stable condition for anticipated continued hospital stay. Complications: none Post-operative Condition: stable Plan for aftercare: inpatient stay
[2024-08-25] MEDS: ONDANSETRON 4 MG/2 ML INJ IV (13:17)
[2024-08-25] MEDS: ALBUMIN HUMAN 12.5 GM/250 ML VIAL IV (13:19)
--- NOTE | 2024-08-25 13:30 | SUR.PHASEI ---
Jenny MARES with general surgery at bedside aware of blood in catheter and that it has not drained much since placement in the OR. Jenny MARES orders for the catheter to be flushed to make sure there are no clots. catheter flushed with 40cc. no clots seen and is draining. jenny MARES states that if after the albumin is finished and the catheter is not draining the catheter should be replaced. acute care RN aware.
--- NOTE | 2024-08-25 13:43 | SUR.PHASEI ---
patient blood sugar is 190. Rebecca Nichols CRNA made aware. verbal order read back for 3units of insulin lispro ordered. see mar.
[2024-08-25] MEDS: hydrOXYzine 50 MG/ML INJ 25 MG IM (13:48)
--- NOTE | 2024-08-25 14:38 | PC.ADMIT ---
1818 [facility] Admission Note: Patient arrived from PACU via stretcher. Albumin infusing into left hand IV, LR infusing into right hand IV. Albumin infusion completed during bedside report. Left hand IV insertion charting absent. Patient asleep, wakes with stimuli but quickly falls back asleep. Admission assessment completed as best as possible. Room air, all vitals stable. Admission completed with primary RN Olga. The patient,Meghna Rudd,59 y/o, was given written information regarding hospital policies, unit procedures and contact persons. Patient's smoking status: Never smoker. Vital Signs - 8 hr 08/25/24 07:06 08/25/24 08:56 08/25/24 13:03 Temperature 97.0 F L 96.0 F L 97.6 F Pulse Rate 78 66 92 H Respiratory Rate 16 17 20 Blood Pressure 131/77 136/57 L 157/79 H Pulse Oximetry 99 97 99 Oxygen Delivery Method Room Air Simple Mask Oxygen Flow Rate 10 08/25/24 13:07 08/25/24 13:12 08/25/24 13:17 Temperature 97.6 F 97.6 F Pulse Rate 85 92 H 90 Respiratory Rate 15 14 14 Blood Pressure 157/74 H 143/78 H 164/77 H Pulse Oximetry 99 99 96 Oxygen Delivery Method Simple Mask Simple Mask Room Air Oxygen Flow Rate 10 10 08/25/24 13:22 08/25/24 13:27 08/25/24 13:42 Temperature 98.2 F Pulse Rate 81 80 74 Respiratory Rate 15 16 15 Blood Pressure 134/72 138/64 130/69 Pulse Oximetry 95 94 97 Oxygen Delivery Method Room Air Room Air Room Air Oxygen Flow Rate 08/25/24 13:57 08/25/24 14:12 Temperature 97.7 F Pulse Rate 82 76 Respiratory Rate 15 15 Blood Pressure 132/67 129/64 Pulse Oximetry 98 96 Oxygen Delivery Method Room Air Room Air Oxygen Flow Rate
--- NOTE | 2024-08-25 15:57 | PT-IP ANOTE ---
PT eval order received and EMR reviewed. checked with nurse and stated that pt is not ready for PT. informed that pt is asleep and had a long surgery today and not ready for PT today.
[2024-08-25] MEDS: OXYCODONE IR 5 MG TABLET PO (18:10)
[2024-08-25] MEDS: INSULIN REGULAR 100 UNIT/ML 3 ML VIAL SUBCUT ×2 (18:14→20:19)
[2024-08-25] MEDS: ACETAMINOPHEN 325 MG TABLET 650 MG PO (18:34)
[2024-08-25] MEDS: HEPARIN 5,000 UNIT/ML VIAL 5000 UNIT SUBCUT (20:20)
[2024-08-25] MEDS: CELECOXIB 200 MG CAPSULE PO (20:22)
[2024-08-25] MEDS: LACTATED RINGERS 1,000 ML 125 ML IV (20:23)
[2024-08-25] MEDS: TIZANIDINE 4 MG TABLET 2 MG PO (22:53)
[2024-08-26] VITALS (11 sets, daily range): BP systolic 88–132; BP diastolic 35–61; PULSE 60–83; RESP 14–18; TEMP 36.1–36.6; O2SAT 95–98
--- NOTE | 2024-08-26 02:36 | PC.NURSE ---
Pt blood pressure 88/35(52) on RUE and 98/49(61) on LUE. Dr. Ortiz notified, states it is probably the tizanidine, it will wear off. i am okay with this blood pressure.
[2024-08-26] MEDS: LEVOTHYROXINE 75 MCG TABLET PO (05:27)
[2024-08-26] MEDS: LACTATED RINGERS 1,000 ML 125 ML IV ×3 (05:28→21:52)
[2024-08-26 05:58] LABS: Add Manual Diff / Slide Review NO; Basophils Absolute Auto 0 /uL (0-100); Basophils Percent Auto 0.2 % (0-2); Eosinophils Absolute Auto 0 /uL (0-450); Eosinophils Percent Auto 0.4 % (2-4); Hematocrit 26.8 % (36-46); Lymphocytes Absolute Auto 1500 /uL (1100-4500); Lymphocytes Percent Auto 29.3 % (25-40); Mean Corpuscular HGB Conc 33.6 % (30-36); Mean Corpuscular Hemoglobin 30.6 PG (26-34); Mean Corpuscular Volume 90.9 fL (80-100); Monocytes Absolute Auto 400 /uL (0-900); Monocytes Percent Auto 7.8 % (3-14); Neutrophils Absolute Auto 3100 /uL (1500-7000); Neutrophils Percent Auto 62.3 % (50-75); Platelet Count 225 X10^3/uL (150-400); Red Blood Cell Count 2.95 X10^6/uL (4.0-5.2); Red Cell Distribution Width 13.7 % (11.6-14.8)
[2024-08-26 06:23] LABS: Alanine Aminotransferase 13 IU/L (<35); Albumin 2.9 g/dL (3.5-5.0); Albumin Globulin Ratio 1.2 (1.0-2.8); Alkaline Phosphatase 53 U/L (38-126); Aspartate Aminotransferase 21 IU/L (14-36); BUN Creatinine Ratio 18.5 (6-22); Bilirubin Total 0.6 mg/dL (0.2-1.3); Blood Urea Nitrogen 12 mg/dL (7-17); Calcium 8.1 mg/dL (8.4-10.2); Carbon Dioxide 25 mmol/L (22-32); Chloride 109 mmol/L (98-107); Estimated Glomerular Filt Rate > 60 mL/min (>60); Globulin 2.5 g/dL (1.7-4.1); Glucose 130 mg/dL (80-110); HEMOLYSIS < 15 (0-50); Sodium 138 mmol/L (137-145); Total Protein 5.4 g/dL (6.3-8.2)
--- NOTE | 2024-08-26 08:50 | OT.IP.EVAL ---
Current Diagnoses Type 2 diabetes mellitus without complications (08/25/24) Diverticulitis of large intestine with perforation and abscess without bleeding (08/25/24) Diverticulitis of intestine, part unspecified, without perforation or abscess without bleeding (08/25/24) Surgery Performed Operation Date: 08/25/24 07:45 Actual Procedures p Cystoscopy, Placement of Temporary Ureteral Stents(Bilateral) - Pierre Mcdonald DO p Laparoscopic Sigmoid Colectomy - West Ortiz MD Past Medical History (Last Reviewed 08/17/24 @ 15:27 by Pierre Mcdonald DO) DM2 (diabetes mellitus, type 2) Hydronephrosis Hypothyroidism Ovarian cyst Tubo-ovarian abscess Surgical History (Last Reviewed 08/17/24 @ 15:27 by Pierre Mcdonald DO) History of section History of colonoscopy (04/2024) History of tonsillectomy Occupational Therapy Inpatient Evaluation/Re-Eval M1 PT/OT-IP Prior Functional Status Start: 08/26/24 07:51 Freq: NEEDED Status: Active Protocol: Document 08/26/24 08:58 MB (Rec: 08/26/24 09:41 MB [id number]) Medical Review Prior Functional Status Medical History Reviewed Yes Diet/Fluid Consistency Regular Communication WNLs Mobility and Gait I Activities of Daily Living and IADL's I, pt states she worked at [employer] until last February when she got sick. She used to have a cane but her family got rid of it. She and her family live in a halfway in [facility] Social History Household Members family Living Arrangements Other Number of Stairs To Enter/Railing? 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,Plant Associate Employment Status Unemployed M1 PT/OT-IP Prior Functional Status Start: 08/26/24 09:30 Freq: NEEDED Status: Active Protocol: Document 08/26/24 09:31 [facility] (Rec: 08/26/24 09:42 [facility] [id number]) Medical Review Prior Functional Status Communication I Mobility and Gait Pt states used a SPC when she first got sick. Activities of Daily Living and IADL's Pt was independent for all ADL and IADL needs. Prior Functional Level (Other details) Pt lives with her family in a halfway in [place] ( [facility]). Social History Living Arrangements Other Number of Stairs To Enter/Railing? Pt lives in the a halfway with 2 steps with left rail going up , landing and another 13 steps with left rail. Home Environment Standard Height Toilet,Tub/ Shower Home Equipment Straight Cane,Plant Associate Additional Social History Comment Pt has her daughter and SOn in law and friend to be able to assist her at home. M2 OT-IP Current Condition Start: 08/26/24 09:30 Freq: Status: Active Protocol: Document 08/26/24 09:31 [facility] (Rec: 08/26/24 09:42 [facility] [id number]) Occupational Therapy Current Condition Current Condition Evaluation Date 08/26/24 Treatment Diagnosis S/P Laparascopic sigmoid colectomy/placement of ureteral stents Diagnosis Onset Date 08/25/24 Post Operative Precautions Abdominal Surgery Precautions Log Roll,Lifting Restrictions, Gait Belt above Incisional Area M3 OT- IP Subjective and Pain Start: 08/26/24 09:30 Freq: Status: Active Protocol: Document 08/26/24 09:31 [facility] (Rec: 08/26/24 09:42 [facility] [id number]) OT- Subjective Occupational Therapy Visit Type Type Initial Evaluation Visit Start Time 08:50 Visit Stop Time 09:30 Occupational Therapy Visit Comments Patient Comments Pt agreed to get up. Patient/Caregiver Goals TO go home. OT Pain Assessment Pain When Pain Assessed At Rest Pain Present Pain Present Pain Reported Location Abdomen Intensity 2 Scale Used Numeric (0 - 10) M4 OT- IP ADL's Start: 08/26/24 09:30 Freq: Status: Active Protocol: Document 08/26/24 09:31 [facility] (Rec: 08/26/24 09:42 [facility] [id number]) OT [id number] General Evaluation Self-Feeding Ability Independent OT ADL-Grooming General Evaluation Grooming Ability Standby Assistance Comments OT Grooming Comments Pt able to wash her face after set-up of wash cloth. OT ADL-Oral Care Comments Oral Care Comments Pt refused. OT ADL-Dressing General Eval Upper Body Dressing Ability Moderate Assistance Lower Body Dressing Ability Maximum Assistance Comments OT Dressing Comments Pt needing assist to help with her gown and socks at this time. Spoke of use of LB dressing equipment or to just have assist at this time for ADL needs. OT ADL-Toileting General Evaluation Toileting Ability Total Assistance Areas Needing Assistance Empty Catheter or Colostomy Comments OT Toileting Comments Bruton in place. OT ADL-Bathing Comments OT Bathing Comments Pt states to just sponge off initially, pt will benefit from a shower chair versus tub bench pending her recovery. M5 OT- IP IADL's Start: 08/26/24 09:30 Freq: Status: Active Protocol: Document 08/26/24 09:31 [facility] (Rec: 08/26/24 09:42 [facility] [id number]) OT-Instrumental Activities of Daily Living Deficits IADL Deficits Identified Deficits Home Safety Awareness Awareness of Need for Assistance at Home Good Awareness Ability to Problem Solve Emergency Able to Problem Solve Situations Medication Management Medication Management No Deficits Identified Money Management Money Management No Deficits Identified Meal Preparation Meal Preparation Caregiver Provides Assist Assistant Cross Country Coach Assistant Cross Country Coach Caregiver Provides Assist M6 OT- IP Functional Cognition Start: 08/26/24 09:30 Freq: Status: Active Protocol: Document 08/26/24 09:31 [facility] (Rec: 08/26/24 09:42 [facility] [id number]) Cognitive Factors Limiting Selfcare Function Cognitive Ability Level of Alertness Alert Patient Orientation Name,Age,Birthday,Month,Date, Year,Day of Week,Place, Situation Attention Span Ability Capable of Focused Attention, Capable of Sustained Attention Ability to Follow Commands Able to Follow One Step Commands Cognitive Comments Cognitive Assessment Comments Pt able to follow commands for ADL and mobility needs. OT- Vision and Hearing OT- Hearing Assessment OT- Hearing Assessment WFL OT- Vision Assessment Visual Acuity Glasses All The Time Visual Attentiveness WFL Occular Pursuits WFL M7 OT- IP Mobility and Balance Start: 08/26/24 09:30 Freq: Status: Active Protocol: Document 08/26/24 09:31 [facility] (Rec: 08/26/24 09:42 [facility] [id number]) OT- Bed Mobility Assessment Supine to Sit Supine to Sit Assist Minimal Assistance Scooting Scooting to Edge of Bed Contact Guard Assistance OT-Transfer Assessment Sit to and From Stand Sit to and from Stand Minimal Assistance Transfers Transfer Ability Minimal Assistance Technique Transfer Destination Bed,Chair Comments Mobility Comments Increased time and able to follow log rolling . JOSE ALFREDO with FWW for transfer. OT- Balance Assessment Sitting Balance and Reactions Static Sitting Balance Ability Good Dynamic Sitting Balance Ability Fair Standing Balance and Reactions Static Standing Balance Ability Fair Dynamic Standing Balance Ability Fair M8 OT- IP Objective Assessments Start: 08/26/24 09:30 Freq: Status: Active Protocol: Document 08/26/24 09:31 [facility] (Rec: 08/26/24 09:42 [facility] [id number]) OT Gross Range of Motion Upper Extremity Range of Motion Assessment Within Functional Limits OT Strength Upper Extremity Strength Assessment Within Functional Limits M9 OT- IP Assessment and Plan Start: 08/26/24 09:30 Freq: Status: Active Protocol: Document 08/26/24 09:31 [facility] (Rec: 08/26/24 09:42 [facility] [id number]) OT Summary Assessment and Plan Potential Rehabilitation Potential Good Analytic Complexity at Evaluation Moderate Summary OT Impairments Pain,Balance,Functional Mobility,Grooming,Dressing, Toileting,Bathing,Toilet Transfers,Shower Transfers, Activity Tolerance Progress Towards Goals Slow Progress due to Pain,Slow Progress due to Medical Issues,Slow Progress due to Activity Tolerance Assessment Summary Pt MOD complexity and main barriers are pain,steps, and will need assist from her family for ADL and IADL needs. Pt to go home with 24/7 assist available and home health when medically stable. Goals Grooming Goal Independent Dressing Goal Minimal Assistance,Plant Associate, Sock Aid Toileting Goal Minimal Assistance Bathing Goal Minimal Assistance Toilet Transfer Goal Independent Shower Transfer Goal Contact Guard Assistance Days to Meet Goals 10 Frequency of Treatment Other frequency 5x/week Treatment Plan OT Treatment Plan ADL Training,Functional Mobility,Patient/Family Education,Discharge Planning Other Treatment Recommendations and Next Standing AD: at sink with FWW. Treatment Focus Discharge Recommendations OT Discharge Recommendations Home with 24/7 Assist Available,Home Health Home Equipment Needs BSC, tub bench/showr chair, LB dressing equipment Transportation Needs at Discharge Private Vehicle
--- NOTE | 2024-08-26 09:41 | PT.IIE ---
Current Diagnoses Type 2 diabetes mellitus without complications (08/25/24) Diverticulitis of large intestine with perforation and abscess without bleeding (08/25/24) Diverticulitis of intestine, part unspecified, without perforation or abscess without bleeding (08/25/24) Surgery Performed Operation Date: 08/25/24 07:45 Actual Procedures p Cystoscopy, Placement of Temporary Ureteral Stents(Bilateral) - Pierre Mcdonald DO p Laparoscopic Sigmoid Colectomy - West Ortiz MD Surgical History (Last Reviewed 08/17/24 @ 15:27 by Pierre Mcdonald DO) History of section History of colonoscopy (04/2024) History of tonsillectomy Medical History (Last Reviewed 08/17/24 @ 15:27 by Pierre Mcdonald DO) DM2 (diabetes mellitus, type 2) Hydronephrosis Hypothyroidism Ovarian cyst Tubo-ovarian abscess Physical Therapy Inpatient Evaluation/Re-Eval M1 PT/OT-IP Prior Functional Status Start: 08/26/24 07:51 Freq: NEEDED Status: Active Protocol: Document 08/26/24 08:58 MB (Rec: 08/26/24 09:41 MB [id number]) Medical Review Prior Functional Status Medical History Reviewed Yes Diet/Fluid Consistency Regular Communication WNLs Mobility and Gait I Activities of Daily Living and IADL's I, pt states she worked at [employer] until last February when she got sick. She used to have a cane but her family got rid of it. She and her family live in a skilled nursing in [facility] Social History Household Members family Living Arrangements Other Number of Stairs To Enter/Railing? 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 M2 PT-IP Current Condition Start: 08/26/24 07:51 Freq: NEEDED Status: Active Protocol: Document 08/26/24 08:58 MB (Rec: 08/26/24 09:41 MB [id number]) Physical Therapy Current Condition Current Condition Evaluation Date 08/26/24 Treatment Diagnosis B ureteral stents and laparoscopic colon resection M3 PT-IP Subjective Start: 08/26/24 07:51 Freq: NEEDED Status: Active Protocol: Document 08/26/24 08:58 MB (Rec: 08/26/24 09:41 MB [id number]) Subjective Physical Therapy Visit Type Type Initial Evaluation Visit Start Time 08:58 Visit Stop Time 09:24 Number of COMMUNICABLE DISEASE SPECIALIST Visits 0 Physical Therapy Visit Comments Patient Comments Pt reports she slept well and pain is lower today Therapy Pain Assessment Pain When Pain Assessed At Rest Pain Present Pain Present Pain Reported Location Abdomen Intensity 2 Scale Used Numeric (0 - 10) M4 PT-IP Mobility and Gait Start: 08/26/24 07:51 Freq: NEEDED Status: Active Protocol: Document 08/26/24 08:58 MB (Rec: 08/26/24 09:41 MB [id number]) PT-Bed Mobility Assessment Rolling Type of Rolling Log Rolling,Roll to Left Level of Assist Minimal Assistance,1 Person Assistance Supine to Sit Supine to Sit Minimal Assistance,1 Person Assistance,Bedrails Scooting Scooting to Edge of Bed Contact Guard Assistance PT-Transfer Assessment Sit to and From Stand Sit to and from Stand Contact Guard Assistance,1 Person Assistance,Use of Upper Extremities Equipment Transfer Assistive Device Gait Belt,Front Wheeled Walker Orthotic/Prosthetic Devices or Brace: Yes Transfers Transfer Destination Chair Transfer Technique Stepping Transfer Ability Level of Assist Contact Guard Assistance,1 Person Assistance,Use of Upper Extremities Comments Mobility Comments BP checked in LUE and did not drop with supine to sit and is WNLs Gait Assessment Gait Gait Assistance Required: Contact Guard Assist Distance (Feet) 2 Able to Maintain Weight Bearing Status Yes During Gait Assistive Devices Assistive Device Gait Belt,Front Wheeled Walker Orthotic/Prosthetic Devices or Brace: No Gait Deviations General Gait Pattern Antalgic,Decreased Stride Length,Decreased Feet Clearance,Flexed Trunk,Step-to Gait,Wide Based Gait Factors Limiting Gait Function Factors Limiting Gait Function Decreased Activity Tolerance, Pain PT-Balance Assessment Sitting Balance and Reactions Static Sitting Balance Ability Good Dynamic Sitting Balance Ability Good Standing Balance and Reactions Static Standing Balance Ability Good Dynamic Standing Balance Ability Fair Device Used RW M5 PT-IP Objective Assessments Start: 08/26/24 07:51 Freq: NEEDED Status: Active Protocol: Document 08/26/24 08:58 MB (Rec: 08/26/24 09:41 MB [id number]) Orientation Orientation/Cognition Level of Alertness Alert Language Function Ability No Deficits Noted Safety Awareness Understands Safety Issues Memory Description No Deficits Noted Gross Range of Motion Upper Extremity ROM Impairments Defer to OT Lower Extremity ROM Assessment Within Functional Limits Strength Lower Extremity Strength Assessment Within Functional Limits Coordination Assessment Assessment Coordination Comments NT, slow mobility today Sensation Assessment Comments Sensation Comments Denies paresthesias Muscle Tone Muscle Tone WNL Yes M6 PT-IP Treatment Start: 08/26/24 07:51 Freq: NEEDED Status: Active Protocol: Document 08/26/24 08:58 MB (Rec: 08/26/24 09:41 MB [id number]) Physical Therapy Treatment Exercises Exercises Ankle Pumps Education Education Provided Precautions,Post-Op Packet, Safety Other Treatments Other Treatment Performed Ed pt in log rolling to protect abdomen, encouragement about how will advance activity, use of RW currently M7 PT-IP Assessment and Plan Start: 08/26/24 07:51 Freq: NEEDED Status: Active Protocol: Document 08/26/24 08:58 MB (Rec: 08/26/24 09:41 MB [id number]) PT Summary Assessment and Plan Potential Rehabilitation Potential Good Status of Condition at Evaluation Evolving Summary Impairments Pain,Balance,Coordination,Bed Mobility,Transfers,Gait, Activity Tolerance Progress Towards Goals Slow Progress due to Pain Assessment Summary Pt is a pleasant 59 y/o female who underwent two surgical procedures on her abdomen: B ureteral stent placement and laparoscopic colon resection. She reports she sleep well and has less pain this morning. Her BP in LUE is functional and does not drop from supine to sitting today. She requires encouragement and min A for bed mobility including log rolling and CGA for transfer and a few steps this morning. She states she lives at a skilled nursing and has some family support. There are 17 steps to enter her dwelling. Recommend up to chair with RW and nsg and ongoing acute PT during hospital stay to progress gait and steps when appropriate. Goals Bed Mobility Goal Independent Transfer Goal Independent,Cane,Front Wheeled Walker Gait Goal Independent,Cane,Front Wheel Walker Gait Distance 150 Other Goals Pt will ascend and descend hospital 3 steps x3 with left rail ascend and right rail descend with no more than CGA to prepare for home entrance. Days to Meet Goals 5 Frequency of Treatment Frequency Of Treatment Once a Day Other frequency x1 Treatment Plan Physical Therapy Treatment Plan Bed Mobility Training,Transfer Training,Gait Training, Therapeutic Exercise,Balance Retraining,Post Op Education, Discharge Planning,Hot or Cold Pack,Neuromuscular Re-ed, Coordination Retraining,Manual Therapy Precautions Abdominal Surgery Precautions Log Roll,Lifting Restrictions, Gait Belt above Incisional Area Recommendations To Nursing Amount of Assist Needed 1 Person Assist Discharge Recommendations PT Discharge Recommendations Home with Assistance,Home Health Equipment Needed for Home Before May need RW for d/c Discharge Transportation Needs at Discharge Private Vehicle
[2024-08-26] MEDS: MAGNESIUM HYDROXIDE 30 ML UDC PO ×2 (09:57→21:50)
[2024-08-26] MEDS: POTASSIUM CHLORIDE 20 MEQ TAB 40 MEQ PO ×2 (09:58→14:56)
[2024-08-26] MEDS: CHOLECALCIFEROL (VITAMIN D3) 5,000 UNIT TABLET 5000 UNIT PO (10:00)
[2024-08-26] MEDS: ACETAMINOPHEN 325 MG TABLET 650 MG PO ×2 (10:00→21:50)
[2024-08-26] MEDS: HEPARIN 5,000 UNIT/ML VIAL 5000 UNIT SUBCUT ×2 (10:00→21:50)
[2024-08-26] MEDS: CELECOXIB 200 MG CAPSULE PO ×2 (10:00→21:50)
[2024-08-26] MEDS: SODIUM FERRIC GLUCONAT/SUCROSE 125 MG in SODIUM CHLORIDE 0.9% 100 ML 110 MG IV (10:01)
[2024-08-26] MEDS: INSULIN REGULAR 100 UNIT/ML 3 ML VIAL SUBCUT ×3 (10:03→17:20)
[2024-08-26] MEDS: MAGNESIUM OXIDE 400 MG TABLET PO (10:12)
--- NOTE | 2024-08-26 11:37 | DIET.CONS ---
Dietary Consultation Note Admission Date: 08/25/2024 06:37 Assessment: 59 y F admitted for a sigmoid diverticulitis with abscess, s/p surgery. Dietitian consulted for DM. Met with pt at bedside. A1c 6.9%. Higher FBG. Working with PCP for medication management on Dapaglifozin and will attempt to order GLP-1. Pt reports decrease in appetite and PO intakes since January. Has around half her usual amount of meal times since then. Reports unintentional weight loss, 249 lb in January, now 216 lb, that she associates with decrease in appetite and sleeping more. Had diarrhea with protein shakes pre-surgery. Is trying pea protein protein smoothie at lunch today. Nutrition focused physical exam performed with no significant findings. Assessed: temples, clavicle region, interosseous, buccal and orbital fat pads. Ht: 157.48 cm Wt: 98.2 kg BMI: 39.6 UBW: 109.344 kg on 04/19/24 (-10% weight loss within 5 months, severe) Last BM: 08/26/24 (08/26/24 10:50) MNA: Nicolas Score: 19 Diet: 08/25/24 Dinner Clear Liquid Diet Diet Modifications: 08/26/24 Breakfast Carbohydrate Consistent Diet Diet Modifications: Carbohydrate level: Small (2 CHO) Bedtime snack: No Reflex DM orders: No Food Texture: Level 6-Soft & Bite-sized Nutrition Percent Meal Consumed 100% 08/26/24 10:50 Labs: RBC 2.95 X10^6/uL (4.0-5.2) L 08/26/24 05:50 Hgb 9.0 g/dL (12.0-16.0) L 08/26/24 05:50 Hct 26.8 % (36-46) L 08/26/24 05:50 Creatinine 0.65 mg/dL (0.52-1.04) 08/26/24 05:50 Nutrition Diagnosis: Moderate acute Protein Calorie Malnutrition r/t alterations in gastrointestinal structure/function as evidenced by <75% of estimated energy intake per diet recall for 6 months (moderate), 10% weight loss within 5 months (severe), diagnosis of sigmoid diverticulitis with abscess Interventions: - ONS/protein supplementation daily to BID to support energy intakes s/p surgery, will adjust as needed based on PO intakes EER: [id number] kcals (MSJx1.1-1.2) 80 g protein (1.25 g/kg per PCM) Monitoring/Evaluations: PO intakes Electronically Signed by: Verónica Kong 08/26/24 11:37 Clinical Dietitian [address] [address]
--- NOTE | 2024-08-26 16:30 | PM.PNPO.1 ---
Subjective Subjective Date Patient Seen: 08/26/24 Time Patient Seen: 12:00 Interval history: Patient is doing very well. She is made 250 mL of clear, dark yellow urine this morning. Her creatinine is normal. Her hemoglobin is stable. She is eating, has had a small liquid bowel movement. No nausea or vomiting. Pain is well controlled. Exam Vital Signs (past 8 hours): - 08/26/24 10:11 08/26/24 13:00 Temperature 97.3 F L Pulse Rate 78 Respiratory Rate 15 Blood Pressure 116/61 127/50 L Pulse Oximetry 97 Oxygen Flow Rate 0 Oxygen Delivery Method Room Air Oxygen Flow Rate 0 Narrative Exam Narrative: Incision is clean, dry, intact Objective Labs 08/26/24 05:50 08/26/24 05:50 Labs: Laboratory Results - last 24 hr 08/26/24 05:50 WBC 5.0 RBC 2.95 L Hgb 9.0 L Hct 26.8 L MCV 90.9 MCH 30.6 MCHC 33.6 RDW 13.7 Plt Count 225 Neut % (Auto) 62.3 Lymph % (Auto) 29.3 [place] % (Auto) 7.8 Eos % (Auto) 0.4 L Baso % (Auto) 0.2 Neut # (Auto) 3100 Lymph # (Auto) 1500 [place] # (Auto) 400 Eos # (Auto) 0 Baso # (Auto) 0 Sodium 138 Potassium 3.0 L Chloride 109 H Carbon Dioxide 25 BUN 12 Creatinine 0.65 Estimated GFR > 60 BUN/Creatinine Ratio 18.5 Glucose 130 H Calcium 8.1 L Total Bilirubin 0.6 AST 21 ALT 13 Alkaline Phosphatase 53 Total Protein 5.4 L Albumin 2.9 L Globulin 2.5 Albumin/Globulin Ratio 1.2 [facility] Medical History Hydronephrosis Tubo-ovarian abscess Ovarian cyst Hypothyroidism DM2 (diabetes mellitus, type 2) Surgical History History of section History of tonsillectomy History of colonoscopy (04/2024) Social History household members: family Smoking Status: Never smoker alcohol intake: current Assessment & Plan Post-op Postoperative Procedures: Procedures Operation Date: 08/25/24 07:45 Actual Procedure Side Surgeon p Cystoscopy, Placement of Temporary Ureteral Stents Bilateral DO nadege Mott Laparoscopic Sigmoid Colectomy West Ortiz MD Postoperative day: 1 Postoperative status: doing well Postoperative status narrative: Patient seems to be making urine and her creatinine is stable. We will likely remove the Burton catheter tomorrow as long as this continues to be the case. Continue to ambulate. Patient lives in a intermediate with her daughter. Daughter was updated on the patient's status. We will need to make sure she is really secure with her self-care and arrangements prior to discharge. Postoperative plan: routine post-op care Time Spent With Patient Time with patient: 15-24 minutes
[2024-08-27] VITALS (9 sets, daily range): BP systolic 101–147; BP diastolic 48–66; PULSE 61–73; RESP 14–18; TEMP 35.8–36.6; O2SAT 94–99
[2024-08-27] MEDS: LACTATED RINGERS 1,000 ML 125 ML IV ×2 (05:54→21:38)
[2024-08-27] MEDS: TIZANIDINE 4 MG TABLET 2 MG PO ×3 (05:54→21:20)
[2024-08-27] MEDS: LEVOTHYROXINE 75 MCG TABLET PO (05:54)
[2024-08-27] MEDS: ACETAMINOPHEN 325 MG TABLET 650 MG PO ×3 (06:30→21:22)
[2024-08-27 07:00] LABS: Add Manual Diff / Slide Review NO; Basophils Absolute Auto 0 /uL (0-100); Basophils Percent Auto 0.3 % (0-2); Eosinophils Absolute Auto 100 /uL (0-450); Eosinophils Percent Auto 1.1 % (2-4); Hematocrit 23.7 % (36-46); Lymphocytes Absolute Auto 1200 /uL (1100-4500); Lymphocytes Percent Auto 26.9 % (25-40); Mean Corpuscular HGB Conc 33.7 % (30-36); Mean Corpuscular Hemoglobin 30.9 PG (26-34); Mean Corpuscular Volume 91.6 fL (80-100); Monocytes Absolute Auto 300 /uL (0-900); Monocytes Percent Auto 7.6 % (3-14); Neutrophils Absolute Auto 2800 /uL (1500-7000); Neutrophils Percent Auto 64.1 % (50-75); Platelet Count 227 X10^3/uL (150-400); Red Blood Cell Count 2.59 X10^6/uL (4.0-5.2); Red Cell Distribution Width 13.5 % (11.6-14.8); White Blood Cell Count 4.4 X10^3/uL (4.5-11.0)
[2024-08-27 07:18] LABS: Alanine Aminotransferase 11 IU/L (<35); Albumin 2.6 g/dL (3.5-5.0); Alkaline Phosphatase 60 U/L (38-126); Aspartate Aminotransferase 20 IU/L (14-36); Bilirubin Total 0.3 mg/dL (0.2-1.3); Blood Urea Nitrogen 9 mg/dL (7-17); Carbon Dioxide 25 mmol/L (22-32); Chloride 111 mmol/L (98-107); Estimated Glomerular Filt Rate > 60 mL/min (>60); Globulin 2.6 g/dL (1.7-4.1); Glucose 133 mg/dL (80-110); HEMOLYSIS < 15 (0-50); Potassium 3.6 mmol/L (3.4-5.1); Sodium 139 mmol/L (137-145); Total Protein 5.2 g/dL (6.3-8.2)
--- NOTE | 2024-08-27 09:36 | CM.DANOTE ---
Initial DCP Assessment Note Pt is a 59 yo female, resident at [facility], leter/transitional housing in [place]. PCP: Mariana Johnson Payer: [employer] C[employer] Reviewed chart, met w/patient POD 1 from: p Cystoscopy, Placement of Temporary Ureteral Stents Bilateral p Laparoscopic Sigmoid Colectomy Patient reports that she lives independently with her daughter, and their children at the usp/transitional housing at [facility]. Patient and her family have experienced chronic housing instability. Patient receives food stamps and denies concern with accessing food, transportation, paying for utilities. Patient reports feeling safe in her current environment and feels she has whats needed to heal and recover safely in her apt, family to assist as needed. Therapies recommending home w/HH services. CM team following clinical course closely. Will plan to discuss HH recommendation with patient today. Plan: Discharge home w/family anticipated, family to transport. Patient is a good candidate for HH if she agrees to the service. LILLIAM Barfield Discharge Planning/Care Management CM Discharge Assessment Start: 08/27/24 09:34 Freq: Status: Active Protocol: Document 08/27/24 09:34 ALETHEA (Rec: 08/27/24 09:35 [id number]) Discharge Planning Assessment Assigned Careers Adviser LILLIAM Aguilar DPOA/Assigned Designee Name ryley Looney Contact Information [phone] Advance Directives? No Advance Directives on File No History Provided By Patient,Medical Record Prior Living Arrangements Other Comment living in a usp Household Members family Type of transporation used prior to Relies on Others admit Independent with ADL's Yes Is patient alert and oriented? Yes Needs Assistance With Home Chores / Shopping Barriers to Discharge No Discharge Plan Homeless [facility] Transportation Arrangement family Additional Comment Patient may benefit from HH RN /PT
[2024-08-27] MEDS: MAGNESIUM OXIDE 400 MG TABLET PO (10:28)
[2024-08-27] MEDS: INSULIN REGULAR 100 UNIT/ML 3 ML VIAL SUBCUT ×2 (10:29→12:05)
[2024-08-27] MEDS: HEPARIN 5,000 UNIT/ML VIAL 5000 UNIT SUBCUT ×2 (10:29→21:18)
[2024-08-27] MEDS: OXYCODONE IR 5 MG TABLET PO (10:29)
[2024-08-27] MEDS: LOSARTAN 50 MG TABLET 75 MG PO (10:30)
[2024-08-27] MEDS: CELECOXIB 200 MG CAPSULE PO ×2 (10:40→21:20)
[2024-08-27] MEDS: CHOLECALCIFEROL (VITAMIN D3) 5,000 UNIT TABLET 5000 UNIT PO (10:40)
--- NOTE | 2024-08-27 11:30 | PT.IPTN ---
Current Diagnoses Type 2 diabetes mellitus without complications (08/25/24) Diverticulitis of large intestine with perforation and abscess without bleeding (08/25/24) Diverticulitis of intestine, part unspecified, without perforation or abscess without bleeding (08/25/24) Surgery Performed Operation Date: 08/25/24 07:45 Actual Procedures p Cystoscopy, Placement of Temporary Ureteral Stents(Bilateral) - Pierre Mcdonald, p Laparoscopic Sigmoid Colectomy - West Ortiz MD Physical Therapy Treatment Note M2 PT-IP Current Condition Start: 08/26/24 07:51 Freq: NEEDED Status: Active Protocol: Document 08/26/24 08:58 MB (Rec: 08/26/24 09:41 MB [id number]) Physical Therapy Current Condition Current Condition Evaluation Date 08/26/24 Treatment Diagnosis B ureteral stents and laparoscopic colon resection M3 PT-IP Subjective Start: 08/26/24 07:51 Freq: NEEDED Status: Active Protocol: Document 08/27/24 11:30 AB (Rec: 08/27/24 12:45 AB [id number]) Subjective Physical Therapy Visit Type Type Treatment Note Visit Start Time 11:30 Visit Stop Time 12:00 Number of REGISTERED RESPIRATORY TECHNICIAN Visits 0 Physical Therapy Visit Comments Patient Comments agreeable to do PT Therapy Pain Assessment Pain When Pain Assessed At Rest Pain Present Pain Present Pain Reported Location Abdomen Intensity 2 Scale Used Numeric (0 - 10) Pain Management Techniques Distraction,Modification of Treatment,Re-positioning M4 PT-IP Mobility and Gait Start: 08/26/24 07:51 Freq: NEEDED Status: Active Protocol: Document 08/27/24 11:30 AB (Rec: 08/27/24 12:45 AB [id number]) PT-Bed Mobility Assessment Rolling Type of Rolling Log Rolling Level of Assist Standby Assistance Supine to Sit Supine to Sit Minimal Assistance Sit to Supine Sit to Supine Moderate Assistance,1 Person Assistance PT-Transfer Assessment Sit to and From Stand Sit to and from Stand Minimal Assistance,1 Person Assistance,Use of Upper Extremities Equipment Transfer Assistive Device Gait Belt,Front Wheeled Walker Orthotic/Prosthetic Devices or Brace: No Transfers Transfer Destination Bed,Chair Transfer Technique ambulated Transfer Ability Level of Assist Contact Guard Assistance,1 Person Assistance,Use of Upper Extremities Comments Mobility Comments pt sitting on the chair and agreeable to do PT. BP: 108/ 55 completed sit to stand min A and ambulated ~ 25 ft using FWW. pt sat on EOB. BP checked: 121/74. completed log roll sit to supine mod A and max cues for techniques. completed supine to sit min A and max cues. Assisted pt with brief management. sit to stand from EOB min A and able to maintain standing CGA using FWW for support while assisted with brief management. pt completed step transfer to chair using FWW CGA. positioned pt on the chair. call light and table placed within reach. Gait Assessment Gait Gait Assistance Required: Contact Guard Assist Distance (Feet) 25 Able to Maintain Weight Bearing Status Yes During Gait Assistive Devices Assistive Device Gait Belt,Front Wheeled Walker Orthotic/Prosthetic Devices or Brace: No Gait Deviations General Gait Pattern Decreased Stride Length, Decreased Feet Clearance Factors Limiting Gait Function Factors Limiting Gait Function Decreased Activity Tolerance, Decreased Strength,Limited Range of Motion,Pain,Poor Balance,Poor Safety Awareness M5 PT-IP Objective Assessments Start: 08/26/24 07:51 Freq: NEEDED Status: Active Protocol: Document 08/26/24 08:58 MB (Rec: 08/26/24 09:41 MB [id number]) Orientation Orientation/Cognition Level of Alertness Alert Language Function Ability No Deficits Noted Safety Awareness Understands Safety Issues Memory Description No Deficits Noted Gross Range of Motion Upper Extremity ROM Impairments Defer to OT Lower Extremity ROM Assessment Within Functional Limits Strength Lower Extremity Strength Assessment Within Functional Limits Coordination Assessment Assessment Coordination Comments NT, slow mobility today Sensation Assessment Comments Sensation Comments Denies paresthesias Muscle Tone Muscle Tone WNL Yes M6 PT-IP Treatment Start: 08/26/24 07:51 Freq: NEEDED Status: Active Protocol: Document 08/27/24 11:30 AB (Rec: 08/27/24 12:45 AB [id number]) Physical Therapy Treatment Education Education Provided Safety M7 PT-IP Assessment and Plan Start: 08/26/24 07:51 Freq: NEEDED Status: Active Protocol: Document 08/27/24 11:30 AB (Rec: 08/27/24 12:45 AB [id number]) PT Summary Assessment and Plan Potential Rehabilitation Potential Good Summary Impairments Pain,ROM,Strength,Balance, Coordination,Sensation,Tone, Cognition,Bed Mobility, Transfers,Gait,Activity Tolerance Progress Towards Goals Slow Progress due to Medical Issues Assessment Summary pt progressing slowly with mobility requiring min A for sit to stand and CGA for ambulation using FWW but unable to tolerate much activity. pt plans to go home with family to assist her. will continue to assess progress. Goals Bed Mobility Goal Independent Transfer Goal Independent,Cane,Front Wheeled Walker Gait Goal Independent,Cane,Front Wheel Walker Gait Distance 150 Other Goals Pt will ascend and descend hospital 3 steps x3 with left rail ascend and right rail descend with no more than CGA to prepare for home entrance. Days to Meet Goals 5 Frequency of Treatment Frequency Of Treatment Once a Day Treatment Plan Physical Therapy Treatment Plan Bed Mobility Training,Transfer Training,Gait Training, Therapeutic Exercise,Balance Retraining,Post Op Education, Discharge Planning,Hot or Cold Pack,Neuromuscular Re-ed, Coordination Retraining,Manual Therapy Precautions Abdominal Surgery Precautions Log Roll,Lifting Restrictions, Gait Belt above Incisional Area Recommendations To Nursing Amount of Assist Needed 1 Person Assist Discharge Recommendations PT Discharge Recommendations Home with Assistance,Home Health Equipment Needed for Home Before FWW if not safe with SPC Discharge Transportation Needs at Discharge Private Vehicle
--- NOTE | 2024-08-27 13:10 | OT.IP.TRT ---
Current Diagnoses Type 2 diabetes mellitus without complications (08/25/24) Diverticulitis of large intestine with perforation and abscess without bleeding (08/25/24) Diverticulitis of intestine, part unspecified, without perforation or abscess without bleeding (08/25/24) Surgery Performed Operation Date: 08/25/24 07:45 Actual Procedures p Cystoscopy, Placement of Temporary Ureteral Stents(Bilateral) - Pierre Mcdonald, p Laparoscopic Sigmoid Colectomy - West Ortiz MD Occupational Therapy Treatment Note M2 OT-IP Current Condition Start: 08/26/24 09:30 Freq: Status: Active Protocol: Document 08/26/24 09:31 [facility] (Rec: 08/26/24 09:42 [facility] [id number]) Occupational Therapy Current Condition Current Condition Evaluation Date 08/26/24 Treatment Diagnosis S/P Laparascopic sigmoid colectomy/placement of ureteral stents Diagnosis Onset Date 08/25/24 Post Operative Precautions Abdominal Surgery Precautions Log Roll,Lifting Restrictions, Gait Belt above Incisional Area M3 OT- IP Subjective and Pain Start: 08/26/24 09:30 Freq: Status: Active Protocol: Document 08/27/24 12:56 SEE (Rec: 08/27/24 13:10 [facility] [id number]) OT- Subjective Occupational Therapy Visit Type Type Treatment Note Visit Start Time 11:00 Visit Stop Time 11:22 Notes Pt was sitting up in chair on entrance of OT. Pt agreed to participate in OT tx session, and specifically to learn how to use LB AE. Occupational Therapy Visit Comments Patient Comments Pt states her precautions s/p abdominal sx. Patient/Caregiver Goals TO go home. OT Pain Assessment Pain When Pain Assessed At Rest Pain Present Pain Present Pain Reported Location Abdomen Intensity 2 Scale Used Numeric (0 - 10) M4 OT- IP ADL's Start: 08/26/24 09:30 Freq: Status: Active Protocol: Document 08/27/24 12:56 SEE (Rec: 08/27/24 13:10 [facility] [id number]) OT RBO-[id number]-Smduttq General Evaluation Self-Feeding Ability Independent Comments OT Self-Feeding Comments not observed OT ADL-Grooming Comments OT Grooming Comments not performed OT ADL-Oral Care Comments Oral Care Comments not performed OT ADL-Dressing General Eval Upper Body Dressing Ability Moderate Assistance Lower Body Dressing Ability Standby Assistance Areas Needing Assistance Retrieving/Set-up of Clothing, Underpants/Brief,Socks Assistive Devices Dressing Assistive Devices Long Handled Shoe Horn,Head Of Integrated Media ,Sock Aid Comments OT Dressing Comments Pt was sitting up in chair for AE training. OT educated pt on use of assistant buyer to doff sock and for don/doff of under wear , use of sockaid for socks, and use of long handled shoe horn for shoes. After education, pt used assistant buyer to doff her socks with S. She donned her socks using sock aid with S. She started her briefs on B LEs using assistant buyer and pulled them up to her knees with S. Due to having the catheter in place pt did not completely don brief, but instead used the assistant buyer to doff correctly. Pt reports having a assistant buyer at home. Pt may need min A or more when performing full LB dressing. This can be reassessed once the cuevas is d/c. OT ADL-Toileting General Evaluation Toileting Ability Total Assistance Areas Needing Assistance Empty Catheter or Colostomy Comments OT Toileting Comments pt declines need. OT educated pt on use of toilet paper aid for assistance with hygiene. OT also suggested standing up to perform buttock hygiene if this is challenging for pt. Pt verbalizes understanding. OT ADL-Bathing Comments OT Bathing Comments pt declined during tx. OT educated pt on use of long handled sponge for assisting in LB bathing as well as with her back. Pt verbalizes understanding. Protocol: Document 08/27/24 12:56 [facility] (Rec: 08/27/24 13:10 [facility] [id number] OT Summary Assessment and Plan Potential Rehabilitation Potential Good Analytic Complexity at Evaluation Moderate Summary OT Impairments Pain,Balance,Functional Mobility,Grooming,Dressing, Toileting,Bathing,Toilet Transfers,Shower Transfers, Activity Tolerance Progress Towards Goals Slow Progress due to Pain,Slow Progress due to Medical Issues,Slow Progress due to Activity Tolerance Assessment Summary Pt was pleasant and cooperative during OT tx. Pt was eager to learn how to use AE for LB dressing, reporting that sometimes she gets dizzy when she dresses herself. Pt was educated on use of assistant buyer , sock aid, extended shoe horn , toileting aid, and long handled sponge for BADL. Pt demonstrated good use of assistant buyer and sock aid, don/doff her socks and brief with S. Due to having cuevas in place, pt did not pull briefs all the way up and may need more assistance when standing. OT would be appropriate to address this when catheter is d/c. Pt declined sink side ADLs at the time of tx. Pt was left up in chair with all needs met and PT present to begin PT tx. Pt continues to be appropriate for skilled OT services to address POC. Goals Grooming Goal Independent Dressing Goal Minimal Assistance,Head Of Integrated Media, Sock Aid Toileting Goal Minimal Assistance Bathing Goal Minimal Assistance Toilet Transfer Goal Independent Shower Transfer Goal Contact Guard Assistance Days to Meet Goals 10 Frequency of Treatment Other frequency 5x/week Treatment Plan OT Treatment Plan ADL Training,Functional Mobility,Patient/Family Education,Discharge Planning Other Treatment Recommendations and Next Standing AD: at sink with FWW. Treatment Focus Discharge Recommendations OT Discharge Recommendations Home with 24/7 Assist Available,Home Health Home Equipment Needs BSC, tub bench/shower chair, LB dressing equipment Transportation Needs at Discharge Private Vehicle
--- NOTE | 2024-08-27 13:17 | PM.PNPO.1 ---
Subjective Subjective Date Patient Seen: 08/27/24 Time Patient Seen: 13:17 Interval history: Per nursing, patient had some nausea this morning. However the patient has not reported any nausea to me in his eating lunch without difficulty. She is having small loose bowel movements, it was making nonbloody urine in the [place]. Exam Vital Signs (past 8 hours): - 08/27/24 06:00 08/27/24 08:00 08/27/24 13:00 Temperature 96.6 F L 97.1 F L Pulse Rate 63 61 Respiratory Rate 16 14 Blood Pressure 103/48 L 101/52 L Pulse Oximetry 95 94 98 Oxygen Delivery Method Room Air Oxygen Flow Rate 0 0 Oxygen Delivery Method Room Air Oxygen Flow Rate 0 Narrative Exam Narrative: Incision is clean, dry, intact Objective Labs 08/27/24 05:30 08/27/24 05:30 Labs: Laboratory Results - last 24 hr 08/27/24 05:30 WBC 4.4 L RBC 2.59 L Hgb 8.0 L Hct 23.7 L MCV 91.6 MCH 30.9 MCHC 33.7 RDW 13.5 Plt Count 227 Neut % (Auto) 64.1 Lymph % (Auto) 26.9 [place] % (Auto) 7.6 Eos % (Auto) 1.1 L Baso % (Auto) 0.3 Neut # (Auto) 2800 Lymph # (Auto) 1200 [place] # (Auto) 300 Eos # (Auto) 100 Baso # (Auto) 0 Sodium 139 Potassium 3.6 Chloride 111 H Carbon Dioxide 25 BUN 9 Creatinine 0.50 L Estimated GFR > 60 BUN/Creatinine Ratio 18.0 Glucose 133 H Calcium 8.0 L Total Bilirubin 0.3 AST 20 ALT 11 Alkaline Phosphatase 60 Total Protein 5.2 L Albumin 2.6 L Globulin 2.6 Albumin/Globulin Ratio 1.0 [facility] Medical History Hydronephrosis Tubo-ovarian abscess Ovarian cyst Hypothyroidism DM2 (diabetes mellitus, type 2) Surgical History History of section History of tonsillectomy History of colonoscopy (04/2024) Social History household members: family Smoking Status: Never smoker alcohol intake: current Assessment & Plan Post-op Postoperative Procedures: Procedures Operation Date: 08/25/24 07:45 Actual Procedure Side Surgeon p Cystoscopy, Placement of Temporary Ureteral Stents Bilateral DO nadege Mott Laparoscopic Sigmoid Colectomy West Ortiz MD Postoperative day: 2 Postoperative status: doing well Postoperative plan: ambulate and voiding trials Time Spent With Patient Time with patient: less than 15 minutes
[2024-08-27] MEDS: INSULIN LISPRO 100 UNIT/ML 3ML VIAL SUBCUT ×2 (17:51→21:29)
[2024-08-27] MEDS: MAGNESIUM HYDROXIDE 30 ML UDC PO (21:20)
[2024-08-28] VITALS (10 sets, daily range): BP systolic 98–152; BP diastolic 47–62; PULSE 59–79; RESP 14–18; TEMP 36.1–36.4; O2SAT 96–100
[2024-08-28] MEDS: TIZANIDINE 4 MG TABLET 2 MG PO (05:51)
[2024-08-28] MEDS: LEVOTHYROXINE 75 MCG TABLET PO (05:51)
[2024-08-28 05:58] LABS: Add Manual Diff / Slide Review NO; Basophils Absolute Auto 0 /uL (0-100); Basophils Percent Auto 0.3 % (0-2); Eosinophils Absolute Auto 100 /uL (0-450); Eosinophils Percent Auto 2.4 % (2-4); Hemoglobin 7.4 g/dL (12.0-16.0); Lymphocytes Absolute Auto 1500 /uL (1100-4500); Lymphocytes Percent Auto 41.1 % (25-40); Mean Corpuscular HGB Conc 33.7 % (30-36); Mean Corpuscular Hemoglobin 30.9 PG (26-34); Mean Corpuscular Volume 91.5 fL (80-100); Monocytes Absolute Auto 200 /uL (0-900); Monocytes Percent Auto 6.1 % (3-14); Neutrophils Absolute Auto 1800 /uL (1500-7000); Neutrophils Percent Auto 50.1 % (50-75); Platelet Count 226 X10^3/uL (150-400); Red Cell Distribution Width 13.8 % (11.6-14.8); White Blood Cell Count 3.5 X10^3/uL (4.5-11.0)
[2024-08-28 06:09] LABS: Alanine Aminotransferase 12 IU/L (<35); Albumin 2.6 g/dL (3.5-5.0); Alkaline Phosphatase 60 U/L (38-126); Aspartate Aminotransferase 20 IU/L (14-36); Bilirubin Total 0.2 mg/dL (0.2-1.3); Blood Urea Nitrogen 11 mg/dL (7-17); Calcium 8.2 mg/dL (8.4-10.2); Carbon Dioxide 27 mmol/L (22-32); Chloride 108 mmol/L (98-107); Estimated Glomerular Filt Rate > 60 mL/min (>60); Globulin 2.7 g/dL (1.7-4.1); Glucose 133 mg/dL (80-110); HEMOLYSIS < 15 (0-50); Potassium 3.9 mmol/L (3.4-5.1); Sodium 137 mmol/L (137-145); Total Protein 5.3 g/dL (6.3-8.2)
--- NOTE | 2024-08-28 08:20 | PT.IPTN ---
Current Diagnoses Type 2 diabetes mellitus without complications (08/25/24) Diverticulitis of large intestine with perforation and abscess without bleeding (08/25/24) Diverticulitis of intestine, part unspecified, without perforation or abscess without bleeding (08/25/24) Surgery Performed Operation Date: 08/25/24 07:45 Actual Procedures p Cystoscopy, Placement of Temporary Ureteral Stents(Bilateral) - Pierre Mcdonald, p Laparoscopic Sigmoid Colectomy - West Ortiz MD Physical Therapy Treatment Note M2 PT-IP Current Condition Start: 08/26/24 07:51 Freq: NEEDED Status: Active Protocol: Document 08/26/24 08:58 MB (Rec: 08/26/24 09:41 MB [id number]) Physical Therapy Current Condition Current Condition Evaluation Date 08/26/24 Treatment Diagnosis B ureteral stents and laparoscopic colon resection M3 PT-IP Subjective Start: 08/26/24 07:51 Freq: NEEDED Status: Active Protocol: Document 08/28/24 08:20 AB (Rec: 08/28/24 13:01 AB [id number]) Subjective Physical Therapy Visit Type Type Treatment Note Visit Start Time 08:20 Visit Stop Time 08:50 Number of OPERATIONAL RISK MANAGER Visits 0 Physical Therapy Visit Comments Patient Comments agreeable to do PT Therapy Pain Assessment Pain When Pain Assessed At Rest Pain Present Pain Present Pain Reported Location Abdomen Intensity 2 Scale Used Numeric (0 - 10) Pain Management Techniques Distraction,Modification of Treatment,Re-positioning, Timing of Activity with Medications M4 PT-IP Mobility and Gait Start: 08/26/24 07:51 Freq: NEEDED Status: Active Protocol: Document 08/28/24 08:20 AB (Rec: 08/28/24 13:01 AB [id number]) PT-Bed Mobility Assessment Rolling Type of Rolling Log Rolling Level of Assist Standby Assistance Supine to Sit Supine to Sit Standby Assistance Sit to Supine Sit to Supine Standby Assistance PT-Transfer Assessment Sit to and From Stand Sit to and from Stand Contact Guard Assistance, Minimal Assistance,1 Person Assistance,Use of Upper Extremities Equipment Transfer Assistive Device Gait Belt,Front Wheeled Walker Orthotic/Prosthetic Devices or Brace: No Transfers Transfer Destination Bed,Chair Transfer Technique ambulated Transfer Ability Level of Assist Contact Guard Assistance,1 Person Assistance,Use of Upper Extremities Comments Mobility Comments pt sitting on the chair and agreeable to do PT. pt requested to use the toilet. completed sit to stand form the chair min A and ambulated to the toilet using FWW CGA. pt completed sit to stand from the toilet using grab bar CGA . pt assisted with hygiene care and brief management. pt ambulated towards the chair using fWW CGA. pt rested. pt agreed to ambulate more. sit to stand from chair CGA to min A and ambulated in room ~ 70 ft using fWW SBA to cGA. pt sat on EOB. completed log roll bed mobility SBA and occasional cues. sit to stand from EOB CGA and completed step transfer back to chair using FWW SBA. positioned pt on the chair. call light and table placed within reach. Gait Assessment Gait Gait Assistance Required: Standby Assistance,Contact Guard Assist Distance (Feet) 70 Able to Maintain Weight Bearing Status Yes During Gait Assistive Devices Assistive Device Gait Belt,Front Wheeled Walker Orthotic/Prosthetic Devices or Brace: No Factors Limiting Gait Function Factors Limiting Gait Function Decreased Activity Tolerance, Decreased Strength,Limited Range of Motion,Pain,Poor Balance M5 PT-IP Objective Assessments Start: 08/26/24 07:51 Freq: NEEDED Status: Active Protocol: Document 08/26/24 08:58 MB (Rec: 08/26/24 09:41 MB [id number]) Orientation Orientation/Cognition Level of Alertness Alert Language Function Ability No Deficits Noted Safety Awareness Understands Safety Issues Memory Description No Deficits Noted Gross Range of Motion Upper Extremity ROM Impairments Defer to OT Lower Extremity ROM Assessment Within Functional Limits Strength Lower Extremity Strength Assessment Within Functional Limits Coordination Assessment Assessment Coordination Comments NT, slow mobility today Sensation Assessment Comments Sensation Comments Denies paresthesias Muscle Tone Muscle Tone WNL Yes M6 PT-IP Treatment Start: 08/26/24 07:51 Freq: NEEDED Status: Active Protocol: Document 08/28/24 08:20 AB (Rec: 08/28/24 13:01 AB [id number]) Physical Therapy Treatment Education Education Provided Precautions,Safety M7 PT-IP Assessment and Plan Start: 08/26/24 07:51 Freq: NEEDED Status: Active Protocol: Document 08/28/24 08:20 AB (Rec: 08/28/24 13:01 AB [id number]) PT Summary Assessment and Plan Potential Rehabilitation Potential Good Summary Impairments Pain,ROM,Strength,Balance, Coordination,Cognition,Bed Mobility,Transfers,Gait, Activity Tolerance Progress Towards Goals Progressing Toward Goals Assessment Summary pt improving with mobility using FWW. continues to have decrease activity tolerance but improving . pt plans to go home with family to assist her. pt will benefit from HHPT. Goals Bed Mobility Goal Independent Transfer Goal Independent,Cane,Front Wheeled Walker Gait Goal Independent,Cane,Front Wheel Walker Gait Distance 150 Other Goals Pt will ascend and descend hospital 3 steps x3 with left rail ascend and right rail descend with no more than CGA to prepare for home entrance. Days to Meet Goals 5 Frequency of Treatment Frequency Of Treatment Once a Day Treatment Plan Physical Therapy Treatment Plan Bed Mobility Training,Transfer Training,Gait Training, Therapeutic Exercise,Balance Retraining,Post Op Education, Discharge Planning,Hot or Cold Pack,Neuromuscular Re-ed, Coordination Retraining,Manual Therapy Other Recommendations and Next Treatment stair climbing training when Focus appropriate Precautions Abdominal Surgery Precautions Log Roll,Lifting Restrictions, Gait Belt above Incisional Area Recommendations To Nursing Amount of Assist Needed 1 Person Assist Discharge Recommendations PT Discharge Recommendations Home with Assistance,Home Health Equipment Needed for Home Before FWW if not safe with SPC Discharge
--- NOTE | 2024-08-28 08:54 | PM.PNPO.1 ---
Subjective Subjective Date Patient Seen: 08/28/24 Time Patient Seen: 08:55 Interval history: Patient is doing well. She is voiding spontaneously with a catheter removed. Her bowel movements are starting to form up. She is still requiring some assistance during PT and OT evaluations, otherwise is doing well. Exam Vital Signs (past 8 hours): - 08/28/24 01:00 08/28/24 02:00 08/28/24 05:00 Temperature 96.9 F L 96.9 F L Pulse Rate 60 59 L Respiratory Rate 18 18 Blood Pressure 108/47 L 113/53 L Pulse Oximetry 96 96 96 Oxygen Delivery Method Room Air Oxygen Flow Rate 0 0 08/28/24 06:00 Temperature Pulse Rate Respiratory Rate Blood Pressure Pulse Oximetry 96 Oxygen Delivery Method Room Air Oxygen Flow Rate Oxygen Delivery Method Room Air Oxygen Flow Rate 0 Narrative Exam Narrative: Incisions are clean, dry, intact. She has no cellulitis. Objective Labs 08/28/24 04:40 08/28/24 04:40 Labs: Laboratory Results - last 24 hr 08/28/24 04:40 WBC 3.5 L RBC 2.40 L Hgb 7.4 L Hct 22.0 L MCV 91.5 MCH 30.9 MCHC 33.7 RDW 13.8 Plt Count 226 Neut % (Auto) 50.1 Lymph % (Auto) 41.1 H [place] % (Auto) 6.1 Eos % (Auto) 2.4 Baso % (Auto) 0.3 Neut # (Auto) 1800 Lymph # (Auto) 1500 [place] # (Auto) 200 Eos # (Auto) 100 Baso # (Auto) 0 Sodium 137 Potassium 3.9 Chloride 108 H Carbon Dioxide 27 BUN 11 Creatinine 0.58 Estimated GFR > 60 BUN/Creatinine Ratio 19.0 Glucose 133 H Calcium 8.2 L Total Bilirubin 0.2 AST 20 ALT 12 Alkaline Phosphatase 60 Total Protein 5.3 L Albumin 2.6 L Globulin 2.7 Albumin/Globulin Ratio 1.0 [facility] Medical History Hydronephrosis Tubo-ovarian abscess Ovarian cyst Hypothyroidism DM2 (diabetes mellitus, type 2) Surgical History History of section History of tonsillectomy History of colonoscopy (04/2024) Social History household members: family Smoking Status: Never smoker alcohol intake: current Assessment & Plan Post-op Postoperative Procedures: Procedures Operation Date: 08/25/24 07:45 Actual Procedure Side Surgeon p Cystoscopy, Placement of Temporary Ureteral Stents Bilateral Pierre Mcdonald DO p Laparoscopic Sigmoid Colectomy West Ortiz MD Postoperative day: 3 Postoperative status: anemia Postoperative status narrative: Patient has some pancytopenia anemia, does not appear septic in any way. We will order some iron. She has hypoalbuminemia we will order Protein shakes. Continue working with PT and OT until she feels safe for discharge to home. She lives in a group home with her daughter Postoperative plan: ambulate Time Spent With Patient Time with patient: less than 15 minutes
[2024-08-28] MEDS: SODIUM FERRIC GLUCONAT/SUCROSE 125 MG in SODIUM CHLORIDE 0.9% 100 ML 110 MG IV (09:19)
[2024-08-28] MEDS: CHOLECALCIFEROL (VITAMIN D3) 5,000 UNIT TABLET 5000 UNIT PO (09:39)
[2024-08-28] MEDS: CELECOXIB 200 MG CAPSULE PO ×2 (09:40→21:49)
[2024-08-28] MEDS: HEPARIN 5,000 UNIT/ML VIAL 5000 UNIT SUBCUT ×2 (09:40→21:48)
[2024-08-28] MEDS: MAGNESIUM OXIDE 400 MG TABLET PO (09:42)
[2024-08-28] MEDS: INSULIN LISPRO 100 UNIT/ML 3ML VIAL SUBCUT ×3 (12:07→21:53)
--- NOTE | 2024-08-28 16:33 | CM.DPNOTE ---
DCP Note [facility] reviewed EMR. Pt POD2 cystoscopy and temp stent placement. Per PT, continue to rec HH. per Natasha at [facility], cannot accept more [facility] at this time. Per Gina at [facility], [facility], willing to review. if [facility] is a group home, cannot accept. but pt/family lives in Apartments through [facility], willing to review. [facility] emailed initial referral information. Acceptance pending. [facility] unable to meet with pt today due to triaging needs. Plan: Discharge home w/family anticipated, family to transport. Patient is a good candidate for HH if she agrees to the service, [facility], [facility] reviewing. f2f and order needed. LILLIAM Multani
[2024-08-28] MEDS: MAGNESIUM HYDROXIDE 30 ML UDC PO (21:49)
[2024-08-29] VITALS (11 sets, daily range): BP systolic 121–144; BP diastolic 58–76; PULSE 62–78; RESP 12–20; TEMP 35.6–36.3; O2SAT 95–99
[2024-08-29] MEDS: ACETAMINOPHEN 325 MG TABLET 650 MG PO ×4 (02:05→19:52)
[2024-08-29] MEDS: LEVOTHYROXINE 75 MCG TABLET PO (06:13)
[2024-08-29] MEDS: TIZANIDINE 4 MG TABLET 2 MG PO ×3 (06:13→21:18)
[2024-08-29] MEDS: SODIUM FERRIC GLUCONAT/SUCROSE 125 MG in SODIUM CHLORIDE 0.9% 100 ML 110 MG IV (08:01)
[2024-08-29] MEDS: CHOLECALCIFEROL (VITAMIN D3) 5,000 UNIT TABLET 5000 UNIT PO (08:02)
[2024-08-29] MEDS: HEPARIN 5,000 UNIT/ML VIAL 5000 UNIT SUBCUT ×2 (08:02→21:20)
[2024-08-29] MEDS: LOSARTAN 50 MG TABLET 75 MG PO (08:02)
[2024-08-29] MEDS: MAGNESIUM OXIDE 400 MG TABLET PO (08:02)
[2024-08-29] MEDS: CELECOXIB 200 MG CAPSULE PO ×2 (08:02→21:18)
[2024-08-29] MEDS: INSULIN LISPRO 100 UNIT/ML 3ML VIAL SUBCUT ×4 (08:03→21:21)
--- NOTE | 2024-08-29 09:24 | PM.PNPO.1 ---
Subjective Subjective Date Patient Seen: 08/29/24 Time Patient Seen: 09:24 Interval history: Patient feels well, is eating well, states she had 5 bowel movements yesterday but is still getting milk of magnesia. No nausea or vomiting. Pain is well controlled with Tylenol and Celebrex. Exam Vital Signs (past 8 hours): - 08/29/24 02:00 08/29/24 04:10 08/29/24 08:00 Temperature 97.0 F L 96.0 F L Pulse Rate 62 64 Respiratory Rate 18 12 Blood Pressure 137/63 121/58 L Pulse Oximetry 97 98 96 Oxygen Delivery Method Room Air Oxygen Flow Rate 0 0 Oxygen Delivery Method Room Air Oxygen Flow Rate 0 Narrative Exam Narrative: Incision is clean, dry, intact Objective Labs 08/28/24 04:40 08/28/24 04:40 [facility] Medical History Hydronephrosis Tubo-ovarian abscess Ovarian cyst Hypothyroidism DM2 (diabetes mellitus, type 2) Surgical History History of section History of tonsillectomy History of colonoscopy (04/2024) Social History household members: family Smoking Status: Never smoker alcohol intake: current Assessment & Plan Post-op Postoperative Procedures: Procedures Operation Date: 08/25/24 07:45 Actual Procedure Side Surgeon p Cystoscopy, Placement of Temporary Ureteral Stents Bilateral Pierre Mcdonald DO p Laparoscopic Sigmoid Colectomy West Ortiz MD Postoperative day: 4 Postoperative status narrative: Postoperative day 4 laparoscopic sigmoid colectomy for diverticulitis. Awaiting [facility], she lives in a senior care environment with her daughter would like her to have some resources available. Hopefully, able for discharge tomorrow. Postoperative plan: ambulate Time Spent With Patient Time with patient: less than 15 minutes
--- NOTE | 2024-08-29 11:48 | PT.IPTN ---
Current Diagnoses Type 2 diabetes mellitus without complications (08/25/24) Diverticulitis of large intestine with perforation and abscess without bleeding (08/25/24) Diverticulitis of intestine, part unspecified, without perforation or abscess without bleeding (08/25/24) Surgery Performed Operation Date: 08/25/24 07:45 Actual Procedures p Cystoscopy, Placement of Temporary Ureteral Stents(Bilateral) - Pierre Mcdonald, p Laparoscopic Sigmoid Colectomy - West Ortiz MD Physical Therapy Treatment Note M2 PT-IP Current Condition Start: 08/26/24 07:51 Freq: NEEDED Status: Active Protocol: Document 08/26/24 08:58 MB (Rec: 08/26/24 09:41 MB [id number]) Physical Therapy Current Condition Current Condition Evaluation Date 08/26/24 Treatment Diagnosis B ureteral stents and laparoscopic colon resection M3 PT-IP Subjective Start: 08/26/24 07:51 Freq: NEEDED Status: Active Protocol: Document 08/29/24 11:00 MB (Rec: 08/29/24 11:48 MB [id number]) Subjective Physical Therapy Visit Type Type Treatment Note Visit Start Time 11:00 Visit Stop Time 11:25 Number of SORTER PACKER Visits 0 Physical Therapy Visit Comments Patient Comments Pt with some tearfulness about some family dynamics upon arrival and she feels better and agrees to PT after PT listening and encouragement. Therapy Pain Assessment Pain When Pain Assessed At Rest Pain Present Pain Present Pain Reported Location Abdomen Scale Used 0-1 M4 PT-IP Mobility and Gait Start: 08/26/24 07:51 Freq: NEEDED Status: Active Protocol: Document 08/29/24 11:00 MB (Rec: 08/29/24 11:48 MB [id number]) PT-Bed Mobility Assessment Rolling Type of Rolling Log Rolling,Roll to Right,Roll to Left,Bilateral Level of Assist Independent Supine to Sit Supine to Sit Independent Sit to Supine Sit to Supine Independent Scooting Scooting to Edge of Bed Independent Scooting Up and Down in Bed Independent PT-Transfer Assessment Sit to and From Stand Sit to and from Stand Independent,Use of Upper Extremities Equipment Transfer Assistive Device Gait Belt,Front Wheeled Walker Orthotic/Prosthetic Devices or Brace: No Transfers Transfer Destination Bed,Chair Transfer Technique Ambulation Transfer Ability Level of Assist Independent,1 Person Assistance,Use of Upper Extremities Gait Assessment Gait Gait Assistance Required: Independent,Standby Assistance Distance (Feet) 150 Assistive Devices Assistive Device Gait Belt,Front Wheeled Walker Orthotic/Prosthetic Devices or Brace: No Comments Gait Comments Slow jim, otherwise, progresses to mod I Stair Climbing Assessment Evaluation Level of Assist On Stairs Standby Assistance,1 Person Assistance Devices Stair Climbing Assistive Devices Left Railing Technique/Endurance Stair Climbing Direction Ascend and Descend Stair Climbing Technique Step to Step Number of Steps Climbed 3 Stair Climbing Set # Repetitions (reps) 2 Comments Stair Climbing Comments Facing left rail ascend and both hands on rail and step up first with right foot and second with left foot, then hold same rail descend and switch to left foot descend first and right foot second PT-Balance Assessment Sitting Balance and Reactions Static Sitting Balance Ability Normal Dynamic Sitting Balance Ability Normal Standing Balance and Reactions Static Standing Balance Ability Normal Dynamic Standing Balance Ability Good Device Used RW or sink as needed for brushing teeth M5 PT-IP Objective Assessments Start: 08/26/24 07:51 Freq: NEEDED Status: Active Protocol: Document 08/26/24 08:58 MB (Rec: 08/26/24 09:41 MB [id number]) Orientation Orientation/Cognition Level of Alertness Alert Language Function Ability No Deficits Noted Safety Awareness Understands Safety Issues Memory Description No Deficits Noted Gross Range of Motion Upper Extremity ROM Impairments Defer to OT Lower Extremity ROM Assessment Within Functional Limits Strength Lower Extremity Strength Assessment Within Functional Limits Coordination Assessment Assessment Coordination Comments NT, slow mobility today Sensation Assessment Comments Sensation Comments Denies paresthesias Muscle Tone Muscle Tone WNL Yes M6 PT-IP Treatment Start: 08/26/24 07:51 Freq: NEEDED Status: Active Protocol: Document 08/29/24 11:00 MB (Rec: 08/29/24 11:48 MB [id number]) Physical Therapy Treatment Education Education Provided Precautions,Safety M7 PT-IP Assessment and Plan Start: 08/26/24 07:51 Freq: NEEDED Status: Active Protocol: Document 08/29/24 11:00 MB (Rec: 08/29/24 11:48 MB [id number]) PT Summary Assessment and Plan Potential Rehabilitation Potential Good Status of Condition at Evaluation Stable Summary Assessment Summary Pt has met acute PT goals including bed mobility with log rolling, transfers, gait with RW and ascend and descend steps using one rail. She states her daughter is getting her a RW for home. No further acute skilled PT needs and recommend up with nsg clearance, up to chair for meals and up to BR for toileting. Frequency of Treatment Frequency Of Treatment Discharge Precautions Abdominal Surgery Precautions Log Roll,Lifting Restrictions, Gait Belt above Incisional Area Discharge Recommendations PT Discharge Recommendations Home with Assistance
[2024-08-30] VITALS: BP 140/72; PULSE 63; RESP 16; TEMP 36.2; O2SAT 98
[2024-08-30] MEDS: ACETAMINOPHEN 325 MG TABLET 650 MG PO ×3 (01:24→13:25)
[2024-08-30 04:00] VITALS: BP 143/63; PULSE 62; RESP 16; TEMP 36.4; O2SAT 97
[2024-08-30] MEDS: LEVOTHYROXINE 75 MCG TABLET PO (06:30)
[2024-08-30] MEDS: TIZANIDINE 4 MG TABLET 2 MG PO ×2 (06:31→13:24)
[2024-08-30 08:00] VITALS: BP 147/63; PULSE 58; RESP 14; TEMP 36.2; O2SAT 98
[2024-08-30] MEDS: LOSARTAN 50 MG TABLET 75 MG PO (08:49)
[2024-08-30] MEDS: HEPARIN 5,000 UNIT/ML VIAL 5000 UNIT SUBCUT (08:49)
[2024-08-30] MEDS: CELECOXIB 200 MG CAPSULE PO (08:49)
[2024-08-30] MEDS: CHOLECALCIFEROL (VITAMIN D3) 5,000 UNIT TABLET 5000 UNIT PO (08:49)
[2024-08-30] MEDS: MAGNESIUM OXIDE 400 MG TABLET PO (08:50)
--- NOTE | 2024-08-30 09:58 | P.DS_ITS ---
History of Present Illness History of Present Illness Date Patient Seen: 08/30/24 Time Patient Seen: 09:58 Chief complaint: Laparoscopically Assisted Colectomy/Cystoscopy Narrative: 59-year-old female presented with diverticulitis with abscess and hydroureter. Underwent ureteral stenting and laparoscopic sigmoid colectomy. Did well postop, met her goals with physical therapy. Her pain is well controlled and she is appropriate for discharge Discharge Providers Provider Date of admission: 08/25/24 06:37 Discharge Date: 08/30/24 Primary care physician: Mariana Johnson MD Consults: 08/25/24 13:15 Consult to Dietitian, Adult Routine Comment: Reason For Exam: diabetes Consult to Discharge Planning Routine Comment: Consult to Occupational Therapy Evaluate & Treat Comment: Physician Instructions: Evaluate and treat Consult to Physical Therapy Evaluate & Treat Comment: Physician Instructions: Evaluate and Treat Discharge provider: West Ortiz MD Summary Hospital Course Discharge Diagnosis: 1. Diverticulitis of the sigmoid colon with abscess 2. Hydroureter Hospital Course: Underwent laparoscopic sigmoid resection and ureteral stent placement. Unremarkable postoperative recovery. Status at Discharge Cognitive/behavioral status at discharge: oriented Functional status at discharge: uses cane/walker Overall status at discharge: patient is progressing back to baseline Time Spent with Patient Time spent: Less than 30 minutes Exam Vital Signs (past 8 hours): - 08/30/24 04:00 08/30/24 08:00 Temperature 97.5 F L 97.1 F L Pulse Rate 62 58 L Respiratory Rate 16 14 Blood Pressure 143/63 H 147/63 H Pulse Oximetry 97 98 Oxygen Flow Rate 0 Oxygen Delivery Method Room Air Oxygen Flow Rate 0 Narrative Exam Narrative: Gen: NAD, sitting comfortably in bed, appears well HEENT: Sclera are anicteric, head is normocephalic and atraumatic, trachea is midline. CV: RRR, no JVD Resp: clear to auscultation bilaterally, equal chest wall movement bilaterally Abd: soft, nontender, normoactive bowel sounds Ext: no edema, full range of motion Neuro: Cranial nerves II-XII grossly intact, no focal deficits Skin: No erythema or ecchymosis Objective Labs 08/28/24 04:40 08/28/24 04:40 [facility] Medical History Hydronephrosis Tubo-ovarian abscess Ovarian cyst Hypothyroidism DM2 (diabetes mellitus, type 2) Surgical History History of section History of tonsillectomy History of colonoscopy (04/2024) Social History household members: family Smoking Status: Never smoker alcohol intake: current Discharge Assessment & Plan Assessment and Plan Assessment: 1. Sigmoid diverticulitis with abscess 2. Hydroureter Plan of Treatment: No further antibiotics needed. Follow-up in office as scheduled Discharge Plan Discharge Plan Patient Disposition: Home Discharge orders & Medications Prescriptions: New meloxicam 15 mg tablet 15 mg PO DAILY Qty: 30 0RF tizanidine 2 mg tablet 2 mg PO Q8H PRN (Reason: muscle spasticity or pain) Qty: 90 0RF Continued Ozempic 0.25 mg or 0.5 mg (2 mg/3 mL) pen injector 0.25 mg SUBCUT QWEEK Qty: 3 1RF Rx Instructions: for 4 weeks levothyroxine 75 mcg tablet 75 mcg PO DAILY Qty: 90 3RF losartan 50 mg tablet 75 mg PO DAILY Qty: 135 3RF dapagliflozin propanediol 10 mg tablet 10 mg PO QAM Qty: 90 0RF magnesium 200 mg Tablet 400 mg PO DAILY cholecalciferol (vitamin D3) [Vitamin D3] 125 mcg (5,000 unit) Tablet 125 mcg PO DAILY Follow up/Referrals: Mariana Johnson MD [Primary Care Provider] - Diet/Activity/Treatments Diet: Regular Diet comment: soft diet for 2 weeks Skin/Wound/Dressing Care Report to your healthcare provider any signs of infection, such as:: chills, fever, night sweats, increased pain, unusual drainage and unusual redness Visit Report/Discharge Packet Instructions: DI for Colectomy Stand Alone Forms: Patient Portal/API, Stroke Signs & Symptoms Discharge Data Primary Care Provider: Mariana Johnson PROFEE Charge Codes Discharge inpatient/observation: 26405 (14088 global period)
--- NOTE | 2024-08-30 11:23 | CM.DPNOTE ---
DCP note FRAMING CARPENTER reviewed EMR Per chart review, PT cleared for home with assistance. FRAMING CARPENTER witnessed pt ambulating indep with walker in hallways. Per chart, cleared to dc home with OP f/u. FRAMING CARPENTER spoke with Gina from [facility], having management review the referral but unlikely ins would auth it. FRAMING CARPENTER met with pt in room and introduced self and role. reviewed barriers to HH, pt reports not needing HH at the moment. Son has walker for her. he can transport her as soon as she's ready to dc. Denies other DCP/CM needs at this time or denies any referrals/resources in the community. FRAMING CARPENTER cancelled referral with [facility] FRAMING CARPENTER updated RN/TCM P: dc home today with family support, OP f/u, and son to transport at dc. no identified barriers to safe dc home at this time. CM team will continue to follow as needed LILLIAM Multani
[2024-08-30 12:00] VITALS: BP 150/71; PULSE 59; RESP 16; TEMP 36.5; O2SAT 100
[2024-08-30] MEDS: INSULIN LISPRO 100 UNIT/ML 3ML VIAL SUBCUT (12:21)
--- NOTE | 2024-08-30 13:04 | OT.IPNOTE ---
Chart reviewed and pt planned for discharge home today. Discussed with patient and she states she feels ready to go home and has no further concerns. No OT services on this date.
--- NOTE | 2024-08-30 15:15 | PC.NURSE ---
Patient looking forward to her discharge today. Talkative and pleasant. Minimal pain. Moving well with SB assist and walker. Ambulated in halls and showered. Incisions intact without drainage or redness. Tolerating meals. Denies abdominal pain or nausea. Discharge instructions reviewed with patient, she states understanding and has further questions or concerns at this time. Patient is waiting for her ride home from her son whom is suppose to be able to get here around 430pm.
== END 2024-08-30 16:43 | disposition home or self-care (01) | DRG 231 ==
PROVIDERS: Nurse Anesthetist, Certified Registered; Urology; Admitting Provider Surgery; PCP Family Medicine; Referring Provider Surgery; Visit Provider Surgery
PROC: 0T788DZ Dilation of Bilateral Ureters with Intraluminal Device, Via Natural or Artificial Opening Endoscopic (ICD-10-PCS; principal; 2024-08-25 07:45)
PROC: 0DTE0ZZ Resection of Large Intestine, Open Approach (ICD-10-PCS; 2024-08-25 07:45)
DX: K57.20 Diverticulitis of large intestine with perforation and abscess without bleeding (principal); N13.4 Hydroureter; D61.818 Other pancytopenia; D64.9 Anemia, unspecified; E88.09 Other disorders of plasma-protein metabolism, not elsewhere classified; E11.9 Type 2 diabetes mellitus without complications; I10 Essential (primary) hypertension; E03.9 Hypothyroidism, unspecified; Z79.85 Long-term (current) use of injectable non-insulin antidiabetic drugs; Z79.890 Hormone replacement therapy; Z79.84 Long term (current) use of oral hypoglycemic drugs
CPT/HCPCS: 36415; 44208; 44213; 52005; 80053; 82962; 85025; 85027; 97116; 97162; 97166; 97530; 97535; J0330; J0690; J1171; J1644; J1815; J2250; J2405; J2704; J2916; J3010; J3410; J3490; P9045

== ENCOUNTER → 2025-01-27 16:24 | Outpatient (CLI) | payer OTHER, SELFPAY ==
[2024-08-25 06:40] VITALS: BMI 39.6
[2025-01-27 17:48] LABS: Add Manual Diff / Slide Review NO; Hematocrit 37.5 % (36-46); Hemoglobin 12.9 g/dL (12.0-16.0); Lymphocytes Absolute Auto 2000 /uL (1100-4500); Mean Corpuscular HGB Conc 34.5 % (30-36); Mean Corpuscular Hemoglobin 30.9 PG (26-34); Mean Corpuscular Volume 89.8 fL (80-100); Platelet Count 279 X10^3/uL (150-400)
[2025-01-27 17:54] LABS: Hemoglobin A1C% w Est Avg Glu 6.9 % (4.0-6.0)
[2025-01-27 18:15] LABS: Alanine Aminotransferase 16 IU/L (<35); Albumin 4.5 g/dL (3.5-5.0); Albumin Globulin Ratio 1.3 (1.0-2.8); Alkaline Phosphatase 79 U/L (38-126); Blood Urea Nitrogen 25 mg/dL (7-17); Calcium 9.5 mg/dL (8.4-10.2); Carbon Dioxide 28 mmol/L (22-32); Chloride 103 mmol/L (98-107); Estimated Glomerular Filt Rate > 60 mL/min (>60); Globulin 3.6 g/dL (1.7-4.1); Glucose 110 mg/dL (70-99); HEMOLYSIS < 15 (0-50); Potassium 4.4 mmol/L (3.4-5.1); Sodium 136 mmol/L (137-145); Total Protein 8.1 g/dL (6.3-8.2)
[2025-01-27 18:17] LABS: HEMOLYSIS < 15 (0-50); Iron 101 ug/dL (37-170)
[2025-01-27 18:28] LABS: Percent Iron Saturation 35 % (15-50); Total Iron Binding Capacity 289 ug/dL (265-497); Transferrin 240 mg/dL (206-381)
[2025-01-27 18:49] LABS: TSH w/ Reflex to FT4 6.53 uIU/mL (0.47-4.68)
[2025-01-27 18:50] LABS: Ferritin 59 ng/mL (11-264)
[2025-01-27 19:37] LABS: Free T4, Direct Thyroxine 0.84 ng/dL (0.78-2.19)
== END ==
PROVIDERS: PCP Family Medicine; Referring Provider Family Medicine; Visit Provider Family Medicine
DX: E11.9 Type 2 diabetes mellitus without complications (principal); I10 Essential (primary) hypertension; D64.9 Anemia, unspecified; E03.9 Hypothyroidism, unspecified
CPT/HCPCS: 36415; 80053; 82728; 83036; 83540; 83550; 84439; 84443; 85025